=== PATIENT | female | born 1975 | race African-American/Black ===

== ENCOUNTER 2017-11-09 15:45 | Inpatient (IN) | payer OTHER ==
[2017-11-09 16:34] VITALS: BMI 31.3
--- NOTE | 2017-11-09 16:46 | HP ---
COWS - Scale Resting Pulse: 0= [place] 80 or Below Sweatin=Flushed/Facial Moisture Restless Observation: 1= Difficult to Sit Still Pupil Size: 1= Pupils >than Normal Bone or Joint Aches: 2= Severe Diffuse Aches Runny Nose/ Eye Tearin= Runny Nose/Eyes GI Upset > 30mins: 2= Nausea/Diarrhea Tremor Observation: 2= Slight Tremor Visible Yawning Observation: 1= 1-2x During Session Anxiety or Irritability: 2=Irritable/Anxious Goose Flesh Skin: 0=Smooth Skin COWS Score: 15 CIWA Score - CIWA Score Nausea/Vomitin-Mild Nausea/No Vomiting Muscle Tremors: 4-Moderate,w/Arms Extend Anxiety: 1-Mildly Anxious Agitation: 1-Slight > Activity Paroxysmal Sweats: 4-Forehead w/Sweat Beads Orientation: 0-Oriented Tacttile Disturbances: 0-None Auditory Disturbances: 0-None Visual Disturbances: 0-None Headache: 3-Moderate CIWA-Ar Total Score: 14 Admission ROS [facility] - [facility] Chief Complaint: Here for heroin and suboxone detox. Allergies/Adverse Reactions: Allergies Allergy/AdvReac Type Severity Reaction Status Date / Time ibuprofen [From Motrin] Allergy Verified 08/29/15 14:29 ketorolac tromethamine Allergy Verified 08/29/15 14:29 [From Toradol] naproxen [From Naprosyn] Allergy Verified 08/29/15 14:29 NSAIDS (Non-Steroidal Allergy Verified 08/29/15 14:29 Anti-Inflamma History of Present Illness: Hx heroin use since age 18. Started Suboxone treatment about 5 years ago and stopped program about 1-2 months ago. Since then has been using street suboxone and intermittent us of heroin. Last suboxone use was 8 pm on 11/08. Last heroin use was 11/09 at 8 am. Alcohol use 4- 16 oz beers daily. Started ETOH @ age 15. 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 No hx seizures. Hx anxiety and bipolar disorder. States on diamox, klonopin, and paxil. Exam Limitations: No Limitations - Ebola screening Have you traveled outside of the country in the last 21 days: No Have you had contact with anyone from an Ebola affected area: No Have you been sick,other than usual withdrawal symptoms: No Do you have a fever: No - Review of Systems Constitutional: Chills EENT: reports: Tearing (r/t withdrawal), Dental Problems, Odynophagia (States bad tooth ache and infection. States taking amoxicillin since 11/06 and using orajel. Also taking motrin. Has a precription waiting for Percocet.) Respiratory: reports: No Symptoms reported Cardiac: reports: No Symptoms Reported GI: reports: Constipated (Hx. constipation Moves bowels 2-3 x/ week.), Nausea, Indigestion (Hx acid reflux - taking OTC prevacid.) : reports: No Symptoms Reported Musculoskeletal: reports: Back Pain (r/t arthritis), Joint Pain (Pain in knees, hands, and fingers r/t arthritis.) Integumentary: reports: No Symptoms Reported Neuro: reports: Headache (r/t toothache and liquid in head..), Tingling, Other ( Hx tumor cerebri and on diamox. Denies numbness/weakness/seizures/visual changes ) Endocrine: reports: No Symptoms Reported Hematology: reports: No Symptoms Reported Psychiatric: reports: Orientated x3, Anxious (Hx. bipolar disorder/manic depressive. Denies suicide or violent ideation.) Patient History - Patient Medical History Hx Anemia: No Hx Asthma: No Hx Chronic Obstructive Pulmonary Disease (COPD): No Hx Cancer: No Hx Cardiac Disorders: No Hx Congestive Heart Failure: No Hx Hypertension: No Hx Hypercholesterolemia: No Hx Pacemaker: No HX Cerebrovascular Accident: No Hx Seizures: Yes (withdrawal from Klonopin 2013) Hx Dementia: No Hx Diabetes: No Hx Gastrointestinal Disorders: Yes (constipation) Hx Liver Disease: No Hx Genitourinary Disorders: No Hx Sexually Transmitted Disorders: No Hx Renal Disease (ESRD): No Hx Thyroid Disease: No Hx Human Immunodeficiency Virus (HIV): No Hx Hepatitis C: No Hx Depression: Yes (On meds) Hx Suicide Attempt: No Hx Bipolar Disorder: Yes (On meds) Hx Schizophrenia: No - Patient Surgical History Past Surgical History: Yes Hx Neurologic Surgery: No Hx Cataract Extraction: No Hx Cardiac Surgery: No Hx Lung Surgery: No Hx Breast Surgery: No Hx Breast Biopsy: No Hx Abdominal Surgery: No Hx Appendectomy: No Hx Cholecystectomy: Yes (2009) Hx Genitourinary Surgery: No Hx Section: Yes (1989 last 1999 last period 09/10) Hx Orthopedic Surgery: No Hx Hysterectomy: No Anesthesia Reaction: No - PPD History Previous Implant?: Yes Date: 08/23/15 Results: 0mm PPD to be Administered?: Yes - Reproductive History Patient is a Female of Child Bearing Age (11 -55 yrs old): Yes Last Menstrual Period: 10/13/15 LMP comment: regular Patient : No - Smoking Cessation Smoking history: Current every day smoker Have you smoked in the past 12 months: Yes Aproximately how many cigarettes per day: 5 Hx Chewing Tobacco Use: No Initiated information on smoking cessation: Yes 'Breaking Loose' booklet given: 11/09/17 - Substance & Tx. History Hx Alcohol Use: Yes Hx Substance Use: Yes Substance Use Type: Alcohol, Heroin, Opiates Hx Substance Use Treatment: Yes (Suboxone, detox ) - Substances Abused Heroin Route: intra-nasal Frequency: 3-6 times per week Amount used: 1 bag Age of first use: 24 Date of Last Use: 11/09/17 (8 am) Buprenorphine Route: sublingual Frequency: Daily Amount used: 8 mg Age of first use: 37 Date of Last Use: 11/08/17 (8 pm) Alcohol Route: Oral Frequency: Daily Amount used: 4 - 16 oz beers Age of first use: 15 Date of Last Use: 11/09/17 (2 pm) Family Disease History - Family Disease History Family Disease History: Diabetes: Mother, CA: Father (PANCREATIC/COLON,) , Other: Sister (etoh) Admission Physical Exam BHS - Vital Signs Vital Signs: Vital Signs - 24 hr 11/09/17 16:32 Temperature 98.1 F Pulse Rate 71 Respiratory 18 Rate Blood Pressure 158/100 - Physical General Appearance: Yes: Nourished, Moderate Distress, Tremorous, Irritable, Sweating, Anxious HEENTM: Yes: EOMI, Hearing grossly Normal, Normocephalic, LUNA, Other (Poor dentition. (+) tenderness (L) rear lower molar w/ mucous membrane tenderness.) Respiratory: Yes: Lungs Clear, Normal Breath Sounds Neck: Yes: No masses,lesions,Nodules Breast: Yes: Breast Exam Deferred Cardiology: Yes: Regular Rhythm, Regular Rate, S1, S2 Abdominal: Yes: Normal Bowel Sounds, Non Tender, Soft Genitourinary: Yes: Within Normal Limits Back: Yes: Normal Inspection Musculoskeletal: Yes: full range of Motion, Gait Steady Extremities: Yes: Normal Capillary Refill, Normal Range of Motion, Tremors Neurological: Yes: plastic roller II-XII NML intact, Fully Oriented, Alert, Motor Strength 5/5 Integumentary: Yes: Normal Color - Diagnostic (1) Alcohol dependence with uncomplicated withdrawal Current Visit: Yes Status: Acute (2) Nicotine dependence Current Visit: Yes Status: Chronic Qualifiers: Nicotine product type: cigarettes Substance use status: uncomplicated Qualified Code(s): F17.210 - Nicotine dependence, cigarettes, uncomplicated (3) Opiate withdrawal Current Visit: Yes Status: Acute (4) Pseudotumor cerebri Current Visit: Yes Status: Chronic (5) GERD (gastroesophageal reflux disease) Current Visit: Yes Status: Chronic (6) Abscess, dental Current Visit: Yes Status: Acute BHS Breath Alcohol Content Breath Alcohol Content: 0.008 Urine Pregancy Test - Result Urine Test Results: Negative- NO Line Present Urine Drug Screen - Results Drug Screen Negative: No Urine Drug Screen Results: ELIZ-Cocaine, OPI-Opiates, TCA-Tricyclic Antidepress
[2017-11-09] MEDS ORDERED: hydrOXYzine PAMOATE 50 MG CAPSULE (FP) PO PRN (17:43)
[2017-11-09] MEDS ORDERED: MAGNESIUM HYDROX 2400MG/30ML ORAL SUSPENSION 30 ML CUP PO PRN (17:43)
[2017-11-09] MEDS ORDERED: LOPERAMIDE HCL 2 MG CAPSULE PO PRN (17:43)
[2017-11-09] MEDS ORDERED: MAGNESIUM CITRATE 300 ML BOTTLE PO PRN (17:43)
[2017-11-09] MEDS ORDERED: MENTHOL/PHENOL 1 EACH UD MM PRN (17:43)
[2017-11-09] MEDS ORDERED: NICOTINE POLACRILEX 2 MG GUM BC PRN (17:43)
[2017-11-09] MEDS ORDERED: P-EPHED 60MG/TRIPROLIDI 2.5MG TABLET PO PRN (17:43)
[2017-11-09] MEDS ORDERED: chlordiazePOXIDE HCL 25 MG CAPSULE PO PRN (17:43)
[2017-11-09] MEDS ORDERED: MAG HYDROX/AL HYDROX/SIMETH 30 ML UNIT-DOSE CUP PO PRN (17:43)
[2017-11-09] MEDS ORDERED: guaiFENesin/D-METHORPHAN HB 10 ML UNIT-DOSE CUPS PO PRN (17:43)
[2017-11-09] MEDS ORDERED: METHADONE HCL 10 MG TABLET (FOR DETOX USE ONLY) PO ONE ×2 (19:00→23:00)
[2017-11-09] MEDS ORDERED: METHADONE HCL 10 MG TABLET (FOR DETOX USE ONLY) ONE (21:18)
[2017-11-09] MEDS: AMOXICILLIN 500 MG CAPSULE (FP) PO SCH (21:20)
[2017-11-09] MEDS: ACETAMINOPHEN 325 MG TABLET (FP) PO PRN (21:23)
[2017-11-09] MEDS ORDERED: MELATONIN 5 MG TABLETS PO PRN (22:00)
[2017-11-09] MEDS: THIAMINE HCL 100 MG TABLET (FP) PO SCH (22:31)
[2017-11-09] MEDS: chlordiazePOXIDE HCL 25 MG CAPSULE PO SCH (22:31)
[2017-11-09] MEDS: BENZOCAINE 20 % GEL 9 GM TUBE MM PRN (22:32)
[2017-11-09] MEDS: acetaZOLAMIDE 250 MG TABLET PO SCH (22:32)
[2017-11-10] MEDS: chlordiazePOXIDE HCL 25 MG CAPSULE PO SCH ×4 (06:12→22:30)
[2017-11-10] MEDS: AMOXICILLIN 500 MG CAPSULE (FP) PO SCH ×3 (06:12→22:29)
[2017-11-10] MEDS: ACETAMINOPHEN 325 MG TABLET (FP) PO PRN ×2 (06:13→14:10)
[2017-11-10] MEDS ORDERED: NICOTINE POLACRILEX 4 MG GUM BUC PRN (09:17)
--- NOTE | 2017-11-10 09:22 | PN ---
[facility] CIWA - CIWA Score Nausea/Vomitin-Mild Nausea/No Vomiting Muscle Tremors: 4-Moderate,w/Arms Extend Anxiety: 3 Agitation: 3 Paroxysmal Sweats: 1-Minimal Palms Moist Orientation: 0-Oriented Tacttile Disturbances: 0-None Auditory Disturbances: 0-None Visual Disturbances: 0-None Headache: 0-None Present CIWA-Ar Total Score: 12 [facility]HS COWS - Scale Resting Pulse: 0= [place] 80 or Below Sweatin= Chills/Flushing Restless Observation: 3= Extraneous Movement Pupil Size: 0= Normal to Room Light Bone or Joint Aches: 1= Mild Discomfort Runny Nose/ Eye Tearin= Nasal Congestion GI Upset > 30mins: 2= Nausea/Diarrhea Tremor Observation of Outstretched Hands: 2= Slight Tremor Visible Yawning Observation: 1= 1-2x During Session Anxiety or Irritability: 1=Feels Anxious/Irritable Goose Flesh Skin: 0=Smooth Skin COWS Score: 12 [facility] Progress Note (SOAP) Subjective: joint pain body ache tremor sweat tooth feel better able to chew regular food Objective: 11/10/17 09:22 Vital Signs Temperature 97.7 F 11/10/17 07:27 Pulse Rate 56 L 11/10/17 07:27 Respiratory Rate 18 11/10/17 07:27 Blood Pressure 131/74 11/10/17 07:27 O2 Sat by Pulse Oximetry (%) 11/10/17 09:23 lab not available Assessment: 11/10/17 09:23 withdrawal sx tooth abscess Plan: continue [facility] teaching on oral hygiene
[2017-11-10] MEDS: BENZOCAINE 20 % GEL 9 GM TUBE MM PRN (09:42)
[2017-11-10] MEDS ORDERED: METHADONE HCL 10 MG TABLET (FOR DETOX USE ONLY) PO SCH (10:00)
[2017-11-10 10:14] LABS: HEMATOCRIT 39.8 % (32.4-45.2); HEMOGLOBIN 13.1 GM/dL (10.7-15.3); MCH 28.7 pg (25.7-33.7); MCHC 32.9 g/dl (32.0-36.0); MEAN CELL VOLUME 87.4 fl (80-96); MEAN PLT VOLUME 10.2 fl (7.5-11.1); PLATELET COUNT 192 K/MM3 (134-434); RBC 4.55 M/mm3 (3.60-5.2); RDW 12.8 % (11.6-15.6); WHITE BLOOD COUNT 5.5 K/mm3 (4.0-10.0)
[2017-11-10 10:20] LABS: CHLORIDE 108 mmol/L (98-107); POTASSIUM 4.2 mmol/L (3.5-5.1); SODIUM 139 mmol/L (136-145)
[2017-11-10] MEDS: PRENATAL VITAMINS W/ FOLIC ACID TABLET (FP) PO SCH (10:33)
[2017-11-10] MEDS: PANTOPRAZOLE 20 MG TABLET (FP) PO SCH (10:33)
[2017-11-10] MEDS: NICOTINE 21 MG/24 HOURS TOPICAL PATCH TD SCH (10:34)
[2017-11-10] MEDS: NICOTINE 14 MG/24 HOURS TOPICAL PATCH TD SCH (10:34)
[2017-11-10] MEDS: acetaZOLAMIDE 250 MG TABLET PO SCH ×2 (10:35→22:30)
[2017-11-10 10:39] LABS: URINE APPEARANCE TURBID; URINE BILIRUBIN NEGATIVE (<2.0 mg/dL); URINE COLOR YELLOW; URINE GLUCOSE (UA) NEGATIVE (NEGATIVE); URINE KETONE NEGATIVE (NEGATIVE); URINE LEUK ESTERASE NEGATIVE (NEGATIVE); URINE NITRITE NEGATIVE (NEGATIVE); URINE PROTEIN NEGATIVE (NEGATIVE); URINE UROBILINOGEN NEGATIVE mg/dL (0.2-1.0)
[2017-11-10 11:21] LABS: ALK PHOS 70 U/L (45-117); ANION GAP 7 (8-16); BILIRUBIN,TOTAL 0.4 mg/dL (0.2-1.0); BLOOD UREA NITROGEN 16 mg/dL (7-18); CALCIUM 8.7 mg/dL (8.5-10.1); CO2 24 mmol/L (21-32); GLUCOSE,RANDOM 84 mg/dL (74-106); SGOT/AST 20 U/L (15-37); SGPT/ALT 41 U/L (12-78); TOT PROT 7.4 g/dl (6.4-8.2)
--- NOTE | 2017-11-10 16:23 | EKG ---
Test Reason : Blood Pressure : / mmHG Vent. Rate : 064 BPM Atrial Rate : 064 BPM P-R Int : 152 ms QRS Dur : 082 ms QT Int : 440 ms P-R-T Axes : 054 052 023 degrees QTc Int : 453 ms NORMAL SINUS RHYTHM NORMAL ECG NO PREVIOUS ECGS AVAILABLE Confirmed by MD Dwain, Ajay ([id number]) on 11/10/2017 4:22:52 PM Referred By: Confirmed By:Ajay Prakash MD
--- NOTE | 2017-11-10 17:10 | CONSULT ---
[facility] Psychiatric Consult - Data Date of interview: 11/10/17 Admission source: [facility] Identifying data: Readmission to [facility] for this 42 y/o AA female seeking detox treatment on for heroin and alcohol dependence.Patient is , a mother of five,domiciled,unemployed and supported on SSI benefits. Substance Abuse History: Smoking history: Current every day smoker. Have you smoked in the past 12 months: Yes. Aproximately how many cigarettes per day: 5. Hx Chewing Tobacco Use: No. Initiated information on smoking cessation: Yes. 'Breaking Loose' booklet given: 11/09/17. - Substance & Tx. History. Hx Alcohol Use: Yes. Hx Substance Use: Yes. Substance Use Type: Alcohol, Heroin, Opiates. Hx Substance Use Treatment: Yes (Suboxone, detox ). - Substances Abused. Heroin. Route: intra-nasal. Frequency: 3-6 times per week. Amount used: 1 bag. Age of first use: 24. Date of Last Use: 11/09/17 (8 am). Buprenorphine. Route: sublingual. Frequency: Daily. Amount used: 8 mg. Age of first use: 37. Date of Last Use: 11/08/17 (8 pm). Alcohol. Route: Oral. Frequency: Daily. Amount used: 4 - 16 oz beers. Age of first use: 15. Date of Last Use: 11/09/17 (2 pm) Medical History: GERD,antecedent of withdrawal-related seizures (klonopin), arthritis,pseudotumor cerebri and a history of surgeries (one section + cholecystectomy). Psychiatric History: Early onset of psychiatric disturbances (learning difficulties during chidhood).First psychiatric hospitalization occurred at [facility] (2007) for mood dysregulation.Diagnosed with Bipolar Disorder.Ms Jj endorses a history of multiple psychiatric hopsitalizations since 2007, which includes an admisssion to [facility].She currently gets her outpatient psychiatric services at the [facility] in [facility].Managed on a regimen of paxil 20 mg/day + seroquel 25 mg/ hs + clonazepam prn.Patient denies history of suicide attempts. Physical/Sexual Abuse/Trauma History: Patient declines to discuss this domain. Additional Comment: Urine Drug Screen Results: ELIZ-Cocaine, OPI-Opiates, TCA- Tricyclic Antidepressant.Noted. Mental Status Exam - Mental Status Exam Alert and Oriented to: Time, Place, Person Cognitive Function: Good Patient Appearance: Well Groomed Mood: Nervous, Anxious Affect: Mood Congruent Patient Behavior: Fatigued, Appropriate, Cooperative Speech Pattern: Clear Voice Loudness: Normal Thought Process: Goal Oriented Hallucinations: Denies Suicidal Ideation: Denies Homicidal Ideation: Denies Insight/Judgement: Poor Sleep: Poorly, Difficulty falling asleep Appetite: Good Muscle strength/Tone: Normal Gait/Station: Normal Psychiatric Findings - Problem List ([place] 1, 2,3) (1) Alcohol dependence with uncomplicated withdrawal Current Visit: Yes Status: Acute (2) Heroin dependence Current Visit: Yes Status: Acute (3) Cocaine dependence Current Visit: Yes Status: Acute (4) Nicotine dependence Current Visit: Yes Status: Chronic Qualifiers: Nicotine product type: cigarettes Substance use status: uncomplicated Qualified Code(s): F17.210 - Nicotine dependence, cigarettes, uncomplicated (5) Bipolar II disorder Current Visit: Yes Status: Chronic (6) Insomnia Current Visit: Yes Status: Acute - Initial Treatment Plan Initial Treatment Plan: Psychoeducation.Sleep hygiene.Detoxification.medications : seroquel 25 mg po hs (patient's specific request) + paxil 20 mg po daily.Side effects/benefits of both drugs are discussed with the patient.She agrees to this plan of care.Observation.
[2017-11-10] MEDS: THIAMINE HCL 100 MG TABLET (FP) PO SCH (22:30)
[2017-11-10] MEDS: QUEtiapine FUMARATE 25 MG TABLET (FP) PO SCH (22:30)
[2017-11-11] MEDS: ACETAMINOPHEN 325 MG TABLET (FP) PO PRN ×2 (06:00→11:00)
[2017-11-11] MEDS: chlordiazePOXIDE HCL 25 MG CAPSULE PO SCH ×3 (06:41→17:34)
[2017-11-11] MEDS: AMOXICILLIN 500 MG CAPSULE (FP) PO SCH ×3 (06:41→22:24)
[2017-11-11] MEDS: PANTOPRAZOLE 20 MG TABLET (FP) PO SCH (10:53)
[2017-11-11] MEDS: PRENATAL VITAMINS W/ FOLIC ACID TABLET (FP) PO SCH (10:53)
[2017-11-11] MEDS: METHADONE HCL 5 MG TABLET (FOR DETOX USE ONLY) PO SCH (10:53)
[2017-11-11] MEDS: PARoxetine HCL 20 MG TABLET (FP) PO SCH (10:53)
[2017-11-11] MEDS: NICOTINE 14 MG/24 HOURS TOPICAL PATCH TD SCH (10:54)
[2017-11-11] MEDS: acetaZOLAMIDE 250 MG TABLET PO SCH ×2 (10:54→22:24)
[2017-11-11] MEDS: NICOTINE 21 MG/24 HOURS TOPICAL PATCH TD SCH (10:55)
--- NOTE | 2017-11-11 11:51 | PN ---
[facility] CIWA - CIWA Score Nausea/Vomitin-No Nausea/No Vomiting Muscle Tremors: 3 Anxiety: 3 Agitation: 3 Paroxysmal Sweats: 1-Minimal Palms Moist Orientation: 0-Oriented Tacttile Disturbances: 1-Very Mild Itch/Numbness Auditory Disturbances: 0-None Visual Disturbances: 0-None Headache: 0-None Present CIWA-Ar Total Score: 11 S COWS - Scale Resting Pulse: 0= [place] 80 or Below Sweatin= Chills/Flushing Restless Observation: 1= Difficult to Sit Still Pupil Size: 0= Normal to Room Light Bone or Joint Aches: 2= Severe Diffuse Aches Runny Nose/ Eye Tearin= Nasal Congestion GI Upset > 30mins: 2= Nausea/Diarrhea Tremor Observation of Outstretched Hands: 2= Slight Tremor Visible Yawning Observation: 1= 1-2x During Session Anxiety or Irritability: 1=Feels Anxious/Irritable Goose Flesh Skin: 0=Smooth Skin COWS Score: 11 [facility] Progress Note (SOAP) Subjective: sweat joint pain body ache tremor trouble sleep at night Objective: 11/11/17 11:50 Vital Signs Temperature 97.2 F L 11/11/17 09:21 Pulse Rate 62 11/11/17 09:21 Respiratory Rate 18 11/11/17 09:21 Blood Pressure 102/53 11/11/17 09:21 O2 Sat by Pulse Oximetry (%) Laboratory Last Values WBC 5.5 K/mm3 (4.0-10.0) D 11/10/17 07:30 RBC 4.55 M/mm3 (3.60-5.2) 11/10/17 07:30 Hgb 13.1 GM/dL (10.7-15.3) 11/10/17 07:30 Hct 39.8 % (32.4-45.2) 11/10/17 07:30 MCV 87.4 fl (80-96) 11/10/17 07:30 MCH 28.7 pg (25.7-33.7) 11/10/17 07:30 MCHC 32.9 g/dl (32.0-36.0) 11/10/17 07:30 RDW 12.8 % (11.6-15.6) 11/10/17 07:30 Plt Count 192 K/MM3 (134-434) 11/10/17 07:30 MPV 10.2 fl (7.5-11.1) 11/10/17 07:30 Sodium 139 mmol/L (136-145) 11/10/17 07:30 Potassium 4.2 mmol/L (3.5-5.1) 11/10/17 07:30 Chloride 108 mmol/L (98-107) H 11/10/17 07:30 Carbon Dioxide 24 mmol/L (21-32) 11/10/17 07:30 Anion Gap 7 (8-16) L 11/10/17 07:30 BUN 16 mg/dL (7-18) 11/10/17 07:30 Creatinine 1.0 mg/dL (0.55-1.02) 11/10/17 07:30 Creat Clearance w eGFR > 60 (>60) 11/10/17 07:30 Random Glucose 84 mg/dL (74-106) 11/10/17 07:30 Calcium 8.7 mg/dL (8.5-10.1) 11/10/17 07:30 Total Bilirubin 0.4 mg/dL (0.2-1.0) 11/10/17 07:30 AST 20 U/L (15-37) 11/10/17 07:30 ALT 41 U/L (12-78) 11/10/17 07:30 Alkaline Phosphatase 70 U/L (45-117) 11/10/17 07:30 Total Protein 7.4 g/dl (6.4-8.2) 11/10/17 07:30 Albumin 4.0 g/dl (3.4-5.0) 11/10/17 07:30 Urine Color Yellow 11/09/17 08:00 Urine Appearance Turbid 11/09/17 08:00 Urine pH 5.0 (5.0-8.0) 11/09/17 08:00 Ur Specific [place] 1.030 (1.001-1.035) 11/09/17 08:00 Urine Protein Negative (NEGATIVE) 11/09/17 08:00 Urine Glucose (UA) Negative (NEGATIVE) 11/09/17 08:00 Urine Ketones Negative (NEGATIVE) 11/09/17 08:00 Urine Blood Negative (NEGATIVE) 11/09/17 08:00 Urine Nitrite Negative (NEGATIVE) 11/09/17 08:00 Urine Bilirubin Negative (<2.0 mg/dL) 11/09/17 08:00 Urine Urobilinogen Negative mg/dL (0.2-1.0) 11/09/17 08:00 Ur Leukocyte Esterase Negative (NEGATIVE) 11/09/17 08:00 RPR Titer Nonreactive (NONREACTIVE) 11/10/17 07:30 HIV 1&2 Antibody Screen Negative 11/10/17 07:30 HIV P24 Antigen Negative 11/10/17 07:30 lab noted Assessment: 11/11/17 11:51 withdrawal sx Plan: continue detox
[2017-11-11] MEDS: QUEtiapine FUMARATE 25 MG TABLET (FP) PO SCH (22:24)
[2017-11-11] MEDS: chlordiazePOXIDE 5 MG CAPSULE PO SCH (22:24)
[2017-11-11] MEDS: THIAMINE HCL 100 MG TABLET (FP) PO SCH (22:24)
[2017-11-12] MEDS: AMOXICILLIN 500 MG CAPSULE (FP) PO SCH ×3 (05:50→22:16)
[2017-11-12] MEDS: chlordiazePOXIDE 5 MG CAPSULE PO SCH ×3 (05:51→17:39)
--- NOTE | 2017-11-12 10:00 | PN ---
[facility] Progress Note (SOAP) Subjective: joint pain body ache sweat tremor trouble sleep at night Objective: 11/12/17 09:59 Vital Signs Temperature 97.7 F 11/12/17 09:24 Pulse Rate 78 11/12/17 09:24 Respiratory Rate 18 11/12/17 09:24 Blood Pressure 103/65 11/12/17 09:24 O2 Sat by Pulse Oximetry (%) Laboratory Last Values WBC 5.5 K/mm3 (4.0-10.0) D 11/10/17 07:30 RBC 4.55 M/mm3 (3.60-5.2) 11/10/17 07:30 Hgb 13.1 GM/dL (10.7-15.3) 11/10/17 07:30 Hct 39.8 % (32.4-45.2) 11/10/17 07:30 MCV 87.4 fl (80-96) 11/10/17 07:30 MCH 28.7 pg (25.7-33.7) 11/10/17 07:30 MCHC 32.9 g/dl (32.0-36.0) 11/10/17 07:30 RDW 12.8 % (11.6-15.6) 11/10/17 07:30 Plt Count 192 K/MM3 (134-434) 11/10/17 07:30 MPV 10.2 fl (7.5-11.1) 11/10/17 07:30 Sodium 139 mmol/L (136-145) 11/10/17 07:30 Potassium 4.2 mmol/L (3.5-5.1) 11/10/17 07:30 Chloride 108 mmol/L (98-107) H 11/10/17 07:30 Carbon Dioxide 24 mmol/L (21-32) 11/10/17 07:30 Anion Gap 7 (8-16) L 11/10/17 07:30 BUN 16 mg/dL (7-18) 11/10/17 07:30 Creatinine 1.0 mg/dL (0.55-1.02) 11/10/17 07:30 Creat Clearance w eGFR > 60 (>60) 11/10/17 07:30 Random Glucose 84 mg/dL (74-106) 11/10/17 07:30 Calcium 8.7 mg/dL (8.5-10.1) 11/10/17 07:30 Total Bilirubin 0.4 mg/dL (0.2-1.0) 11/10/17 07:30 AST 20 U/L (15-37) 11/10/17 07:30 ALT 41 U/L (12-78) 11/10/17 07:30 Alkaline Phosphatase 70 U/L (45-117) 11/10/17 07:30 Total Protein 7.4 g/dl (6.4-8.2) 11/10/17 07:30 Albumin 4.0 g/dl (3.4-5.0) 11/10/17 07:30 Urine Color Yellow 11/09/17 08:00 Urine Appearance Turbid 11/09/17 08:00 Urine pH 5.0 (5.0-8.0) 11/09/17 08:00 Ur Specific [place] 1.030 (1.001-1.035) 11/09/17 08:00 Urine Protein Negative (NEGATIVE) 11/09/17 08:00 Urine Glucose (UA) Negative (NEGATIVE) 11/09/17 08:00 Urine Ketones Negative (NEGATIVE) 11/09/17 08:00 Urine Blood Negative (NEGATIVE) 11/09/17 08:00 Urine Nitrite Negative (NEGATIVE) 11/09/17 08:00 Urine Bilirubin Negative (<2.0 mg/dL) 11/09/17 08:00 Urine Urobilinogen Negative mg/dL (0.2-1.0) 11/09/17 08:00 Ur Leukocyte Esterase Negative (NEGATIVE) 11/09/17 08:00 RPR Titer Nonreactive (NONREACTIVE) 11/10/17 07:30 HIV 1&2 Antibody Screen Negative 11/10/17 07:30 HIV P24 Antigen Negative 11/10/17 07:30 lab noted Assessment: 11/12/17 10:00 withdrawal sx Plan: continue detox
[2017-11-12] MEDS: acetaZOLAMIDE 250 MG TABLET PO SCH ×2 (10:21→22:16)
[2017-11-12] MEDS: METHADONE HCL 5 MG TABLET (FOR DETOX USE ONLY) PO SCH (10:21)
[2017-11-12] MEDS: PRENATAL VITAMINS W/ FOLIC ACID TABLET (FP) PO SCH (10:21)
[2017-11-12] MEDS: PANTOPRAZOLE 20 MG TABLET (FP) PO SCH (10:21)
[2017-11-12] MEDS: PARoxetine HCL 20 MG TABLET (FP) PO SCH (10:21)
[2017-11-12] MEDS: NICOTINE 21 MG/24 HOURS TOPICAL PATCH TD SCH (10:24)
[2017-11-12] MEDS: NICOTINE 14 MG/24 HOURS TOPICAL PATCH TD SCH (11:21)
[2017-11-12] MEDS: BENZOCAINE 20 % GEL 9 GM TUBE MM PRN (17:40)
[2017-11-12] MEDS: ACETAMINOPHEN 325 MG TABLET (FP) PO PRN (19:37)
[2017-11-12] MEDS: chlordiazePOXIDE HCL 10 MG CAPSULE PO SCH (22:16)
[2017-11-12] MEDS: QUEtiapine FUMARATE 25 MG TABLET (FP) PO SCH (22:16)
[2017-11-12] MEDS: THIAMINE HCL 100 MG TABLET (FP) PO SCH (22:17)
[2017-11-13] MEDS: AMOXICILLIN 500 MG CAPSULE (FP) PO SCH (06:14)
[2017-11-13] MEDS: chlordiazePOXIDE HCL 10 MG CAPSULE PO SCH (06:14)
--- NOTE | 2017-11-13 09:24 | DS ---
[facility] Detox Discharge Summary Admission Date: 11/09/17 Discharge Date: 11/13/17 - History Present History: Alcohol Dependence, Opioid Dependence Additional Comments: 42 years old female admitted on 11/09/17 for alcohol and opiate withdrawal sx [facility] journey case discussed with the counselor onsite female bed available today for the patient who requests return home for clothing today before 1100am to the rehab facility at [facility] patient agrees to [facility] before 1100 am rehab with clothing patient is alert oriented x 3 no acute distress denies pain denies discomfort - Physical Exam Results Vital Signs: Vital Signs Temperature 98.1 F 11/13/17 06:00 Pulse Rate 78 11/13/17 06:00 Respiratory Rate 18 11/13/17 06:00 Blood Pressure 104/56 11/13/17 06:00 O2 Sat by Pulse Oximetry (%) Pertinent Admission Physical Exam Findings: withdrawal sx Vital Signs Temperature 98.1 F 11/13/17 06:00 Pulse Rate 78 11/13/17 06:00 Respiratory Rate 18 11/13/17 06:00 Blood Pressure 104/56 11/13/17 06:00 O2 Sat by Pulse Oximetry (%) Laboratory Last Values WBC 5.5 K/mm3 (4.0-10.0) D 11/10/17 07:30 RBC 4.55 M/mm3 (3.60-5.2) 11/10/17 07:30 Hgb 13.1 GM/dL (10.7-15.3) 11/10/17 07:30 Hct 39.8 % (32.4-45.2) 11/10/17 07:30 MCV 87.4 fl (80-96) 11/10/17 07:30 MCH 28.7 pg (25.7-33.7) 11/10/17 07:30 MCHC 32.9 g/dl (32.0-36.0) 11/10/17 07:30 RDW 12.8 % (11.6-15.6) 11/10/17 07:30 Plt Count 192 K/MM3 (134-434) 11/10/17 07:30 MPV 10.2 fl (7.5-11.1) 11/10/17 07:30 Sodium 139 mmol/L (136-145) 11/10/17 07:30 Potassium 4.2 mmol/L (3.5-5.1) 11/10/17 07:30 Chloride 108 mmol/L (98-107) H 11/10/17 07:30 Carbon Dioxide 24 mmol/L (21-32) 11/10/17 07:30 Anion Gap 7 (8-16) L 11/10/17 07:30 BUN 16 mg/dL (7-18) 11/10/17 07:30 Creatinine 1.0 mg/dL (0.55-1.02) 11/10/17 07:30 Creat Clearance w eGFR > 60 (>60) 11/10/17 07:30 Random Glucose 84 mg/dL (74-106) 11/10/17 07:30 Calcium 8.7 mg/dL (8.5-10.1) 11/10/17 07:30 Total Bilirubin 0.4 mg/dL (0.2-1.0) 11/10/17 07:30 AST 20 U/L (15-37) 11/10/17 07:30 ALT 41 U/L (12-78) 11/10/17 07:30 Alkaline Phosphatase 70 U/L (45-117) 11/10/17 07:30 Total Protein 7.4 g/dl (6.4-8.2) 11/10/17 07:30 Albumin 4.0 g/dl (3.4-5.0) 11/10/17 07:30 Urine Color Yellow 11/09/17 08:00 Urine Appearance Turbid 11/09/17 08:00 Urine pH 5.0 (5.0-8.0) 11/09/17 08:00 Ur Specific [place] 1.030 (1.001-1.035) 11/09/17 08:00 Urine Protein Negative (NEGATIVE) 11/09/17 08:00 Urine Glucose (UA) Negative (NEGATIVE) 11/09/17 08:00 Urine Ketones Negative (NEGATIVE) 11/09/17 08:00 Urine Blood Negative (NEGATIVE) 11/09/17 08:00 Urine Nitrite Negative (NEGATIVE) 11/09/17 08:00 Urine Bilirubin Negative (<2.0 mg/dL) 11/09/17 08:00 Urine Urobilinogen Negative mg/dL (0.2-1.0) 11/09/17 08:00 Ur Leukocyte Esterase Negative (NEGATIVE) 11/09/17 08:00 RPR Titer Nonreactive (NONREACTIVE) 11/10/17 07:30 HIV 1&2 Antibody Screen Negative 11/10/17 07:30 HIV P24 Antigen Negative 11/10/17 07:30 lab noted - Treatment Hospital Course: Detox Protocol Followed, Detoxed Safely, Responded well, Discharged Condition Good, Rehab Referral Accepted Patient has Accepted a Rehab Referral to: [facility] - Medication Discharge Medications: Ambulatory Orders Lansoprazole [Prevacid -] 30 mg PO DAILY 04/04/14 acetaZOLAMIDE [Diamox -] 500 mg PO BID 04/04/14 Paroxetine HCl [Paxil -] 20 mg PO HS 08/21/15 Sulfamethoxazole/Trimethoprim [Bactrim DS -] 1 each PO BID #10 tablet 08/26/15 Buprenorphine/Naloxone [Suboxone 8Mg/2Mg Sl Film -] 2 each SL DAILY 08/29/15 Paroxetine HCl [Paxil] 20 mg PO DAILY #30 tablet 11/11/17 Quetiapine Fumarate [Seroquel -] 25 mg PO HS #30 tablet 11/11/17 - Diagnosis (1) Opioid dependence with withdrawal Current Visit: Yes Status: Acute (2) Alcohol dependence with uncomplicated withdrawal Current Visit: Yes Status: Acute (3) Bipolar II disorder Current Visit: Yes Status: Suspected (4) Nicotine dependence Current Visit: Yes Status: Acute Qualifiers: Nicotine product type: cigarettes Substance use status: in withdrawal Qualified Code(s): F17.213 - Nicotine dependence, cigarettes, with withdrawal - AMA Did Patient Leave Against Medical Advice: No
[2017-11-13 09:47] VITALS: BP 150/78; PULSE 74; TEMP 97.7
[2017-11-13] MEDS ORDERED: METHADONE HCL 10 MG TABLET (FOR DETOX USE ONLY) PO SCH (10:00)
[2017-11-14] MEDS ORDERED: METHADONE HCL 5 MG TABLET (FOR DETOX USE ONLY) PO SCH (06:00)
[2017-11-18] MEDS ORDERED: acetaZOLAMIDE 250 MG TABLET PO SCH (22:00)
== END 2017-11-13 09:40 | disposition home or self-care (01) | DRG 773 ==
LOC: YASAS 15:45 → Y6N 18:44
PROVIDERS: ADMIT Surgery; ATTEND Surgery
PROC: HZ2ZZZZ Detoxification Services for Substance Abuse Treatment (ICD-10-PCS; principal; 2017-11-09)
DX: F11.23 Opioid dependence with withdrawal (principal); F10.230 Alcohol dependence with withdrawal, uncomplicated; F14.20 Cocaine dependence, uncomplicated; F17.213 Nicotine dependence, cigarettes, with withdrawal; F31.81 Bipolar II disorder; G47.00 Insomnia, unspecified; G93.2 Benign intracranial hypertension; K21.9 Gastro-esophageal reflux disease without esophagitis; K04.7 Periapical abscess without sinus
CPT/HCPCS: 36415; 80053; 81003; 85027; 86593; 87389; 93005; 93010

== ENCOUNTER 2017-11-13 11:56 | Inpatient (IN) | payer OTHER ==
[2017-11-13 13:21] VITALS: BMI 31.3
--- NOTE | 2017-11-13 13:56 | HP ---
[facility] Rehab Assess/Revision - Admission History Admitted to Rehab from: [facility] Date of Admission to Rehab: 11/13/17 - Vital signs Vital Signs: Vital Signs Period Temp Pulse Resp BP Sys/Medeiros Pulse Ox Last 24 Hr 97.3 F 87 20 131/86 - Findings Detox History & Physical reviewed: Yes Concur with findings: Yes Comments/Additional Findings: for rehab as protocol Inpatient Rehab Admission - Initial Determination Are CD services needed?: Yes Free of communicable disease: Yes Not in need of hospitalization: Yes - Rehab Admission Criteria Previous failed treatment: Yes Poor recovery environment: Yes Comorbidities: Yes Lacks judgement: No Patient is meeting Inpatient Rehab admission criteria:: Yes
[2017-11-13] MEDS ORDERED: MAGNESIUM HYDROX 2400MG/30ML ORAL SUSPENSION 30 ML CUP PO PRN (13:59)
[2017-11-13] MEDS ORDERED: LOPERAMIDE HCL 2 MG CAPSULE PO PRN (13:59)
[2017-11-13] MEDS ORDERED: guaiFENesin/D-METHORPHAN HB 10 ML UNIT-DOSE CUPS PO PRN (13:59)
[2017-11-13] MEDS ORDERED: MAGNESIUM CITRATE 300 ML BOTTLE PO PRN (13:59)
[2017-11-13] MEDS ORDERED: P-EPHED 60MG/TRIPROLIDI 2.5MG TABLET PO PRN (13:59)
[2017-11-13] MEDS ORDERED: MAG HYDROX/AL HYDROX/SIMETH 30 ML UNIT-DOSE CUP PO PRN (13:59)
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
[2017-11-13] MEDS: CYCLOBENZAPRINE HCL 10 MG TABLET (FP) PO PRN (16:24)
[2017-11-13] MEDS: ACETAMINOPHEN 325 MG TABLET (FP) PO PRN ×2 (16:24→22:19)
[2017-11-13] MEDS: NICOTINE 21 MG/24 HOURS TOPICAL PATCH TD SCH (16:25)
[2017-11-13] MEDS: cloNIDine HCL 0.1 MG TABLET PO SCH (22:19)
[2017-11-13] MEDS: THIAMINE HCL 100 MG TABLET (FP) PO SCH (22:19)
[2017-11-13] MEDS: QUEtiapine FUMARATE 25 MG TABLET (FP) PO SCH (22:19)
[2017-11-13] MEDS: MELATONIN 5 MG TABLETS PO PRN (22:21)
[2017-11-14] MEDS ORDERED: LIDOCAINE VISCOUS 2% ORAL/TOP 20 ML UNIT-DOSE CUP MM PRN ×2 (01:58→15:12)
[2017-11-14] MEDS: ACETAMINOPHEN 325 MG TABLET (FP) PO PRN ×3 (06:44→21:54)
[2017-11-14] MEDS: NICOTINE 21 MG/24 HOURS TOPICAL PATCH TD SCH (09:46)
[2017-11-14] MEDS: PARoxetine HCL 20 MG TABLET (FP) PO SCH (09:46)
[2017-11-14] MEDS: PRENATAL VITAMINS W/ FOLIC ACID TABLET (FP) PO SCH (09:46)
[2017-11-14] MEDS: cloNIDine HCL 0.1 MG TABLET PO SCH ×2 (09:46→21:48)
[2017-11-14] MEDS: CYCLOBENZAPRINE HCL 10 MG TABLET (FP) PO PRN (14:57)
[2017-11-14] MEDS: QUEtiapine FUMARATE 25 MG TABLET (FP) PO SCH (21:48)
[2017-11-14] MEDS: THIAMINE HCL 100 MG TABLET (FP) PO SCH (21:48)
[2017-11-14] MEDS: MELATONIN 5 MG TABLETS PO PRN (21:54)
[2017-11-15] MEDS: AMOXICILLIN 500 MG CAPSULE (FP) PO SCH ×4 (00:38→21:27)
[2017-11-15] MEDS: ACETAMINOPHEN 325 MG TABLET (FP) PO PRN ×2 (06:39→21:30)
[2017-11-15] MEDS: cloNIDine HCL 0.1 MG TABLET PO SCH ×2 (09:55→21:28)
[2017-11-15] MEDS: PARoxetine HCL 20 MG TABLET (FP) PO SCH (09:55)
[2017-11-15] MEDS: NICOTINE 21 MG/24 HOURS TOPICAL PATCH TD SCH (09:56)
[2017-11-15] MEDS: PRENATAL VITAMINS W/ FOLIC ACID TABLET (FP) PO SCH (09:56)
--- NOTE | 2017-11-15 13:28 | PN ---
[facility] Progress Note Note: pt is still having toothache; anbesol ordered prn.
[2017-11-15] MEDS: THIAMINE HCL 100 MG TABLET (FP) PO SCH (21:28)
[2017-11-15] MEDS: QUEtiapine FUMARATE 25 MG TABLET (FP) PO SCH (21:28)
[2017-11-15] MEDS: BENZOCAINE 20 % GEL 9 GM TUBE MM PRN (21:28)
[2017-11-15] MEDS: MELATONIN 5 MG TABLETS PO PRN (21:30)
[2017-11-16] MEDS: AMOXICILLIN 500 MG CAPSULE (FP) PO SCH ×3 (06:31→21:33)
[2017-11-16] MEDS: ACETAMINOPHEN 325 MG TABLET (FP) PO PRN ×2 (06:31→21:36)
[2017-11-16] MEDS: MENTHOL/PHENOL 1 EACH UD MM PRN ×2 (06:32→19:31)
[2017-11-16] MEDS: cloNIDine HCL 0.1 MG TABLET PO SCH ×2 (10:04→21:34)
[2017-11-16] MEDS: NICOTINE 21 MG/24 HOURS TOPICAL PATCH TD SCH (10:05)
[2017-11-16] MEDS: PARoxetine HCL 20 MG TABLET (FP) PO SCH (10:05)
[2017-11-16] MEDS: PRENATAL VITAMINS W/ FOLIC ACID TABLET (FP) PO SCH (10:05)
[2017-11-16] MEDS ORDERED: diphenhydrAMINE HCL 50 MG CAPSULE PO ONE (12:27)
--- NOTE | 2017-11-16 12:31 | PN ---
[facility] Progress Note Note: patient of tingling sensation on her lips and mouth after eating BBQ sauce. Vital Signs Temperature 98.2 F 11/16/17 07:07 Pulse Rate 77 11/16/17 09:24 Respiratory Rate 18 11/16/17 07:07 Blood Pressure 116/69 11/16/17 09:24 O2 Sat by Pulse Oximetry (%) Benadryl 50 mg once dose continue to monitor
[2017-11-16] MEDS: diphenhydrAMINE HCL 25 MG CAPSULE (FP) PO PRN (17:37)
[2017-11-16] MEDS: THIAMINE HCL 100 MG TABLET (FP) PO SCH (21:33)
[2017-11-16] MEDS: QUEtiapine FUMARATE 25 MG TABLET (FP) PO SCH (21:33)
[2017-11-16] MEDS: MELATONIN 5 MG TABLETS PO PRN (21:34)
[2017-11-17] MEDS: AMOXICILLIN 500 MG CAPSULE (FP) PO SCH ×3 (06:07→21:30)
[2017-11-17] MEDS: ACETAMINOPHEN 325 MG TABLET (FP) PO PRN ×3 (06:08→21:31)
[2017-11-17] MEDS: MENTHOL/PHENOL 1 EACH UD MM PRN ×2 (06:09→10:21)
[2017-11-17] MEDS: diphenhydrAMINE HCL 25 MG CAPSULE (FP) PO PRN ×2 (08:45→18:11)
[2017-11-17] MEDS: PRENATAL VITAMINS W/ FOLIC ACID TABLET (FP) PO SCH (10:00)
[2017-11-17] MEDS: PARoxetine HCL 20 MG TABLET (FP) PO SCH (10:00)
[2017-11-17] MEDS: NICOTINE 21 MG/24 HOURS TOPICAL PATCH TD SCH (10:00)
--- NOTE | 2017-11-17 14:04 | PN ---
[facility] Progress Note Note: Vital Signs Temperature 98.6 F 11/17/17 06:43 Pulse Rate 71 11/17/17 09:14 Respiratory Rate 18 11/17/17 06:43 Blood Pressure 121/91 11/17/17 09:14 O2 Sat by Pulse Oximetry (%) Patient c/o of sore throat, pain with swallowing and white substance on tongue. Patient also report tongue swells when taking BBQ sauce and ketchup. A/P AOX3 in no apparent distress NO JVD Skin intact, no lesions or erythema present +white plaques on tongue, + redness tonsils, no tonsil swelling or exudates - sore throat Plan: throat culture peridex wash PRN Bendral PRN increase fluids continue to monitor
[2017-11-17] MEDS: CHLORHEXIDINE GLUCONATE 0.12% 15ML CUP MM SCH ×2 (15:00→21:29)
[2017-11-17] MEDS: BENZOCAINE 20 % GEL 9 GM TUBE MM PRN (15:24)
[2017-11-17] MEDS ORDERED: PT OWN MED DRAWER 7, Y5N ONE ×2 (15:25→19:40)
[2017-11-17] MEDS: QUEtiapine FUMARATE 25 MG TABLET (FP) PO SCH (21:30)
[2017-11-17] MEDS: THIAMINE HCL 100 MG TABLET (FP) PO SCH (21:30)
[2017-11-17] MEDS: MELATONIN 5 MG TABLETS PO PRN (21:30)
[2017-11-17] MEDS ORDERED: cloNIDine HCL 0.1 MG TABLET PO ONE (22:00)
[2017-11-18] MEDS: diphenhydrAMINE HCL 25 MG CAPSULE (FP) PO PRN ×2 (01:48→10:06)
[2017-11-18] MEDS: AMOXICILLIN 500 MG CAPSULE (FP) PO SCH ×3 (06:23→21:27)
[2017-11-18] MEDS: ACETAMINOPHEN 325 MG TABLET (FP) PO PRN ×2 (06:23→21:30)
[2017-11-18] MEDS ORDERED: hydrOXYzine PAMOATE 50 MG CAPSULE (FP) PO PRN (06:42)
[2017-11-18] MEDS: NICOTINE 21 MG/24 HOURS TOPICAL PATCH TD SCH (10:05)
[2017-11-18] MEDS: PRENATAL VITAMINS W/ FOLIC ACID TABLET (FP) PO SCH (10:05)
[2017-11-18] MEDS: CHLORHEXIDINE GLUCONATE 0.12% 15ML CUP MM SCH ×2 (10:05→21:28)
[2017-11-18] MEDS: PARoxetine HCL 20 MG TABLET (FP) PO SCH (10:05)
[2017-11-18] MEDS: MENTHOL/PHENOL 1 EACH UD MM PRN ×2 (10:08→21:31)
--- NOTE | 2017-11-18 10:27 | PN ---
Psychiatric Progress Note Vital Signs: Vital Signs Period Temp Pulse Resp BP Sys/Medeiros Pulse Ox Last 24 Hr 98.5 F 59 18-18 143/89 Date of Session: 11/18/17 Chief Complaint:: Flo not sleeping at all,still having withdrawal.. HPI: Patient addressed Opioid,Alcohol,[place] and Benzo dependence comorbid with Bipolar II disorder. ROS: GERD. Current Medications: Active Medications Generic Name Dose Route Start Last Admin Trade Name Freq PRN Reason Stop Dose Admin Acetaminophen 650 mg 11/13/17 13:59 11/18/17 06:23 Tylenol - PO 650 mg Q4H PRN Administration FEVER Al Hydroxide/Mg Hydroxide 30 ml 11/13/17 13:59 Mylanta Oral Suspension - PO Q6H PRN DYSPEPSIA Amoxicillin 500 mg 11/14/17 22:00 11/18/17 06:23 Amoxicillin - PO 500 mg TID GULSHAN Administration Benzocaine 1 applic 11/15/17 13:26 11/17/17 15:24 Anbesol - MM 1 applic Q2H PRN Administration FOR TOOTHACHE Chlorhexidine Gluconate 15 ml 11/17/17 14:00 11/18/17 10:05 Peridex - MM 15 ml BID GULSHAN Administration Diphenhydramine HCl 25 mg 11/16/17 12:28 11/18/17 10:06 Benadryl - PO 25 mg Q6H PRN Administration FOR ITCHING Eucalyptus/Menthol/Phenol/Sorbitol 1 each 11/13/17 13:59 11/18/17 10:08 Cepastat Lozenge - MM 1 each Q4H PRN Administration SORE THROAT Guaifenesin 10 ml 11/13/17 13:59 Robitussin Dm - PO Q6H PRN COUGH Hydroxyzine Pamoate 50 mg 11/18/17 06:42 Vistaril - PO Q6H PRN FOR ITCHING Lidocaine HCl 15 ml 11/14/17 15:12 Xylocaine 2% Viscous Oral - MM Q6H PRN ORAL PAIN/MOUTH SORES Loperamide HCl 4 mg 11/13/17 13:59 Imodium - PO Q6H PRN DIARRHEA Magnesium Citrate 300 ml 11/13/17 13:59 Citroma - PO Q48H PRN CONSTIPATION Magnesium Hydroxide 30 ml 11/13/17 13:59 Milk Of Magnesia - PO DAILY PRN CONSTIPATION Melatonin 5 mg 11/13/17 22:00 11/17/17 21:30 Melatonin PO 5 mg HS PRN Administration INSOMNIA Nicotine 21 mg 11/13/17 14:15 11/18/17 10:05 Nicoderm Patch - TD 21 mg DAILY GULSHAN Administration Paroxetine HCl 20 mg 11/14/17 10:00 11/18/17 10:05 Paxil - PO 20 mg DAILY GULSHAN Administration Multivit/Folic Acid/Iron 1 tab 11/14/17 10:00 11/18/17 10:05 Vitamins (Sjr) - PO 1 tab DAILY GULSHAN Administration Pseudoephedrine/Triprolidine 1 combo 11/13/17 13:59 Actifed - PO TID PRN NASAL CONGESTION Quetiapine Fumarate 50 mg 11/18/17 22:00 Seroquel - PO HS GULSHAN Thiamine HCl 100 mg 11/13/17 22:00 11/17/17 21:30 Vitamin B1 - PO 100 mg HS GULSHAN Administration Current Side Effect: No Lab tests ordered: No Lab tests reviewed: Yes Provider note:: Chart was revuewed ,patient was seen to address her sleeping difficulties.Properties of Seroquel has been discussed including side effects, benefits and dose adjustment.Seroquel 50 mg po hs will be adjusted to 100 mg po hs.Supportive therapy has been provided. Total face to face time:: 25 Mental Status Exam - Mental Status Exam Alert and Oriented to: Time, Place, Person Cognitive Function: Grossly Intact Patient Appearance: Well Groomed Mood: Anxious Affect: Mood Congruent, Labile Patient Behavior: Appropriate, Cooperative Speech Pattern: Clear Voice Loudness: Normal Thought Process: Goal Oriented Thought Disorder: Not Present Hallucinations: Denies Suicidal Ideation: Denies Homicidal Ideation: Denies Insight/Judgement: Good Sleep: Well Appetite: Good Muscle strength/Tone: Normal Gait/Station: Normal Psychiatric Treatment Plan - Problem List (1) Alcohol dependence Current Visit: Yes (2) Opioid dependence Current Visit: Yes (3) Cocaine dependence Current Visit: Yes (4) Nicotine dependence Current Visit: Yes Qualifiers: (5) Benzodiazepine dependence Current Visit: Yes (6) Bipolar II disorder Current Visit: Yes (7) GERD (gastroesophageal reflux disease) Current Visit: Yes (8) Pseudotumor cerebri Current Visit: Yes
--- NOTE | 2017-11-18 14:10 | PN ---
[facility] Progress Note Note: PATIENT SEEN FOR C/O HEADACHE, SWEATING, BODY ACHES, VOMTING X 1 AND TIREDNESS. DENIES CP,SOB AND DIZZINESS. Vital Signs Temperature 98.5 F 11/18/17 07:08 Pulse Rate 70 11/18/17 10:00 Respiratory Rate 18 11/18/17 07:08 Blood Pressure 130/89 11/18/17 10:00 O2 Sat by Pulse Oximetry (%) OBJ: GENERAL: ALERT AND ORIENTED X 3. IN NO ACUTE DISTRESS. STATES I FEEL TIRED. SKIN: MOIST AND WARM. GI:SOFT, NO DISTENTION EXT: FULL ROM A/P: WITHDRAWAL SYNDROME WILL ORDER FLEXERIL 5MG TID CLONIDINE 0.1MG DAILY BP NOTED MILDLY ELEVATED INCREASE ORAL FLUIDS CONTINUE TO MONITOR CLINICALLY
[2017-11-18] MEDS: CYCLOBENZAPRINE HCL 5 MG TABLET PO SCH (21:27)
[2017-11-18] MEDS: QUEtiapine FUMARATE 50 MG TABLET PO SCH (21:27)
[2017-11-18] MEDS: MELATONIN 5 MG TABLETS PO PRN (21:28)
[2017-11-18] MEDS: THIAMINE HCL 100 MG TABLET (FP) PO SCH (21:28)
[2017-11-18] MEDS: acetaZOLAMIDE 250 MG TABLET PO SCH (21:28)
[2017-11-18] MEDS ORDERED: PT OWN MED DRAWER 7, Y5N ONE (21:40)
[2017-11-19] MEDS ORDERED: ONDANSETRON *ODT* 4 MG TABLET SL ONE (01:12)
--- NOTE | 2017-11-19 01:14 | PN ---
[facility] Progress Note Note: Patient complained of nausea Vital Signs Temperature 98.5 F 11/18/17 07:08 Pulse Rate 63 11/18/17 21:15 Respiratory Rate 18 11/18/17 07:08 Blood Pressure 137/93 11/18/17 21:15 O2 Sat by Pulse Oximetry (%) Action: zofran 8 mg SL ordered
[2017-11-19] MEDS: CYCLOBENZAPRINE HCL 5 MG TABLET PO SCH ×3 (06:11→21:31)
[2017-11-19] MEDS: AMOXICILLIN 500 MG CAPSULE (FP) PO SCH ×3 (06:11→21:31)
[2017-11-19] MEDS ORDERED: PT OWN MED DRAWER 7, Y5N ONE ×2 (08:31→20:28)
[2017-11-19] MEDS: cloNIDine HCL 0.1 MG TABLET PO SCH (09:46)
[2017-11-19] MEDS: acetaZOLAMIDE 250 MG TABLET PO SCH ×2 (09:47→21:33)
[2017-11-19] MEDS: PARoxetine HCL 20 MG TABLET (FP) PO SCH (09:49)
[2017-11-19] MEDS: PRENATAL VITAMINS W/ FOLIC ACID TABLET (FP) PO SCH (09:49)
[2017-11-19] MEDS: NICOTINE 21 MG/24 HOURS TOPICAL PATCH TD SCH (09:49)
[2017-11-19] MEDS: CHLORHEXIDINE GLUCONATE 0.12% 15ML CUP MM SCH ×2 (09:50→21:33)
[2017-11-19] MEDS: ACETAMINOPHEN 325 MG TABLET (FP) PO PRN ×2 (09:51→21:35)
--- NOTE | 2017-11-19 13:20 | PN ---
[facility] Progress Note Note: Patient continues to experience protracted opioid withdrawal, nauseam vomiting. Linked to [facility] on 11/27/17 at 1pm for after care and suboxone treatment. Vital Signs Temperature 98.2 F 11/19/17 09:12 Pulse Rate 66 11/19/17 09:12 Respiratory Rate 18 11/19/17 09:12 Blood Pressure 137/89 11/19/17 09:12 O2 Sat by Pulse Oximetry (%) Labs reviewed: Throat culture negative for strep Start suboxone 2mg qd for symptom management. increase fluids continue to monitor
[2017-11-19] MEDS: BUPRENORPHINE/NALOXONE 2 MG/0.5 MG FILM PACKET SL SCH (13:43)
[2017-11-19] MEDS: QUEtiapine FUMARATE 50 MG TABLET PO SCH (21:31)
[2017-11-19] MEDS: THIAMINE HCL 100 MG TABLET (FP) PO SCH (21:32)
[2017-11-19] MEDS: MELATONIN 5 MG TABLETS PO PRN (21:34)
[2017-11-20] MEDS: CYCLOBENZAPRINE HCL 5 MG TABLET PO SCH ×3 (06:28→21:19)
[2017-11-20] MEDS: AMOXICILLIN 500 MG CAPSULE (FP) PO SCH ×3 (06:28→21:19)
[2017-11-20] MEDS: NICOTINE 21 MG/24 HOURS TOPICAL PATCH TD SCH (10:33)
[2017-11-20] MEDS: PRENATAL VITAMINS W/ FOLIC ACID TABLET (FP) PO SCH (10:34)
[2017-11-20] MEDS: cloNIDine HCL 0.1 MG TABLET PO SCH (10:34)
[2017-11-20] MEDS: CHLORHEXIDINE GLUCONATE 0.12% 15ML CUP MM SCH ×2 (10:34→21:23)
[2017-11-20] MEDS: BUPRENORPHINE/NALOXONE 2 MG/0.5 MG FILM PACKET SL SCH (10:34)
[2017-11-20] MEDS: PARoxetine HCL 20 MG TABLET (FP) PO SCH (10:34)
[2017-11-20] MEDS: acetaZOLAMIDE 250 MG TABLET PO SCH ×2 (10:35→21:22)
[2017-11-20] MEDS ORDERED: PT OWN MED DRAWER 7, Y5N ONE (11:06)
[2017-11-20] MEDS: diphenhydrAMINE HCL 25 MG CAPSULE (FP) PO PRN ×2 (13:31→21:19)
--- NOTE | 2017-11-20 14:51 | PN ---
[facility] Progress Note Note: Patient states she has side effects of dizziness from Diamox dosage. Requesting to decrease dosage. Will decrease diamox 250mg BID and continue to monitor clinically.
[2017-11-20] MEDS: QUEtiapine FUMARATE 50 MG TABLET PO SCH (21:19)
[2017-11-20] MEDS: ACETAMINOPHEN 325 MG TABLET (FP) PO PRN (21:19)
[2017-11-20] MEDS: THIAMINE HCL 100 MG TABLET (FP) PO SCH (21:20)
[2017-11-20] MEDS: MELATONIN 5 MG TABLETS PO PRN (21:20)
[2017-11-21] MEDS: AMOXICILLIN 500 MG CAPSULE (FP) PO SCH ×3 (06:49→21:20)
[2017-11-21] MEDS: CYCLOBENZAPRINE HCL 5 MG TABLET PO SCH ×3 (06:49→21:20)
[2017-11-21] MEDS: cloNIDine HCL 0.1 MG TABLET PO SCH (09:21)
[2017-11-21] MEDS: acetaZOLAMIDE 250 MG TABLET PO SCH ×2 (09:21→21:24)
[2017-11-21] MEDS: PRENATAL VITAMINS W/ FOLIC ACID TABLET (FP) PO SCH (09:22)
[2017-11-21] MEDS: NICOTINE 21 MG/24 HOURS TOPICAL PATCH TD SCH (09:22)
[2017-11-21] MEDS: PARoxetine HCL 20 MG TABLET (FP) PO SCH (09:22)
[2017-11-21] MEDS: CHLORHEXIDINE GLUCONATE 0.12% 15ML CUP MM SCH ×2 (09:23→21:22)
[2017-11-21] MEDS: BUPRENORPHINE/NALOXONE 2 MG/0.5 MG FILM PACKET SL SCH (09:23)
[2017-11-21] MEDS: THIAMINE HCL 100 MG TABLET (FP) PO SCH (21:20)
[2017-11-21] MEDS: QUEtiapine FUMARATE 50 MG TABLET PO SCH (21:20)
[2017-11-21] MEDS: MELATONIN 5 MG TABLETS PO PRN (21:21)
[2017-11-21] MEDS ORDERED: PT OWN MED DRAWER 7, Y5N ONE (21:23)
[2017-11-22] MEDS ORDERED: PT OWN MED DRAWER 7, Y5N ONE ×2 (02:37→08:12)
[2017-11-22] MEDS: ACETAMINOPHEN 325 MG TABLET (FP) PO PRN ×2 (02:39→21:55)
[2017-11-22] MEDS: BENZOCAINE 20 % GEL 9 GM TUBE MM PRN (02:39)
[2017-11-22] MEDS: CYCLOBENZAPRINE HCL 5 MG TABLET PO SCH ×3 (06:50→21:52)
[2017-11-22] MEDS: PANTOPRAZOLE 20 MG TABLET (FP) PO SCH ×2 (07:45→10:25)
[2017-11-22] MEDS: CHLORHEXIDINE GLUCONATE 0.12% 15ML CUP MM SCH ×2 (10:25→21:52)
[2017-11-22] MEDS: PARoxetine HCL 20 MG TABLET (FP) PO SCH (10:25)
[2017-11-22] MEDS: PRENATAL VITAMINS W/ FOLIC ACID TABLET (FP) PO SCH (10:25)
[2017-11-22] MEDS: acetaZOLAMIDE 250 MG TABLET PO SCH ×2 (10:26→21:52)
[2017-11-22] MEDS: BUPRENORPHINE/NALOXONE 2 MG/0.5 MG FILM PACKET SL SCH (10:26)
[2017-11-22] MEDS: NICOTINE 21 MG/24 HOURS TOPICAL PATCH TD SCH (10:26)
[2017-11-22] MEDS: cloNIDine HCL 0.1 MG TABLET PO SCH (10:27)
[2017-11-22] MEDS: THIAMINE HCL 100 MG TABLET (FP) PO SCH (21:52)
[2017-11-22] MEDS: MELATONIN 5 MG TABLETS PO PRN (21:52)
[2017-11-22] MEDS: QUEtiapine FUMARATE 50 MG TABLET PO SCH (21:52)
[2017-11-23] MEDS: CYCLOBENZAPRINE HCL 5 MG TABLET PO SCH ×3 (06:10→21:43)
[2017-11-23] MEDS ORDERED: PT OWN MED DRAWER 7, Y5N ONE (08:59)
[2017-11-23] MEDS: acetaZOLAMIDE 250 MG TABLET PO SCH ×2 (10:44→21:43)
[2017-11-23] MEDS: PANTOPRAZOLE 20 MG TABLET (FP) PO SCH (10:44)
[2017-11-23] MEDS: PRENATAL VITAMINS W/ FOLIC ACID TABLET (FP) PO SCH (10:44)
[2017-11-23] MEDS: BUPRENORPHINE/NALOXONE 2 MG/0.5 MG FILM PACKET SL SCH (10:44)
[2017-11-23] MEDS: PARoxetine HCL 20 MG TABLET (FP) PO SCH (10:44)
[2017-11-23] MEDS: CHLORHEXIDINE GLUCONATE 0.12% 15ML CUP MM SCH ×2 (10:44→21:44)
[2017-11-23] MEDS: cloNIDine HCL 0.1 MG TABLET PO SCH (10:44)
[2017-11-23] MEDS: NICOTINE 21 MG/24 HOURS TOPICAL PATCH TD SCH (10:44)
[2017-11-23] MEDS: THIAMINE HCL 100 MG TABLET (FP) PO SCH (21:42)
[2017-11-23] MEDS: MELATONIN 5 MG TABLETS PO PRN (21:42)
[2017-11-23] MEDS: diphenhydrAMINE HCL 25 MG CAPSULE (FP) PO PRN (21:43)
[2017-11-23] MEDS: QUEtiapine FUMARATE 50 MG TABLET PO SCH (21:45)
[2017-11-24] MEDS: CYCLOBENZAPRINE HCL 5 MG TABLET PO SCH ×3 (06:21→21:32)
[2017-11-24] MEDS: NICOTINE 21 MG/24 HOURS TOPICAL PATCH TD SCH (10:20)
[2017-11-24] MEDS: cloNIDine HCL 0.1 MG TABLET PO SCH (10:20)
[2017-11-24] MEDS: PRENATAL VITAMINS W/ FOLIC ACID TABLET (FP) PO SCH (10:20)
[2017-11-24] MEDS: PANTOPRAZOLE 20 MG TABLET (FP) PO SCH (10:20)
[2017-11-24] MEDS: PARoxetine HCL 20 MG TABLET (FP) PO SCH (10:20)
[2017-11-24] MEDS: acetaZOLAMIDE 250 MG TABLET PO SCH ×2 (10:21→21:36)
[2017-11-24] MEDS: BUPRENORPHINE/NALOXONE 2 MG/0.5 MG FILM PACKET SL SCH (10:21)
[2017-11-24] MEDS: CHLORHEXIDINE GLUCONATE 0.12% 15ML CUP MM SCH ×2 (10:21→21:36)
--- NOTE | 2017-11-24 14:49 | PN ---
[facility] Progress Note Note: Patient for d/c tomorrow follow up with primary care provider and [facility] on 11/27/17 at 1pm for after care and suboxone treatment.
[2017-11-24] MEDS: QUEtiapine FUMARATE 50 MG TABLET PO SCH (21:32)
[2017-11-24] MEDS: MELATONIN 5 MG TABLETS PO PRN (21:33)
[2017-11-24] MEDS: THIAMINE HCL 100 MG TABLET (FP) PO SCH (21:33)
[2017-11-24] MEDS: ACETAMINOPHEN 325 MG TABLET (FP) PO PRN (21:34)
[2017-11-24] MEDS: diphenhydrAMINE HCL 25 MG CAPSULE (FP) PO PRN (21:34)
[2017-11-25] MEDS: CYCLOBENZAPRINE HCL 5 MG TABLET PO SCH (06:22)
[2017-11-25 06:58] VITALS: TEMP 98.3
[2017-11-25] MEDS ORDERED: PT OWN MED DRAWER 7, Y5N ONE (09:00)
[2017-11-25 09:02] VITALS: BP 120/77; PULSE 76
[2017-11-25] MEDS: NICOTINE 21 MG/24 HOURS TOPICAL PATCH TD SCH (09:05)
[2017-11-25] MEDS: acetaZOLAMIDE 250 MG TABLET PO SCH (09:05)
[2017-11-25] MEDS: cloNIDine HCL 0.1 MG TABLET PO SCH (09:05)
[2017-11-25] MEDS: PANTOPRAZOLE 20 MG TABLET (FP) PO SCH (09:06)
[2017-11-25] MEDS: PARoxetine HCL 20 MG TABLET (FP) PO SCH (09:06)
[2017-11-25] MEDS: BUPRENORPHINE/NALOXONE 2 MG/0.5 MG FILM PACKET SL SCH (09:06)
[2017-11-25] MEDS: PRENATAL VITAMINS W/ FOLIC ACID TABLET (FP) PO SCH (09:06)
[2017-11-25] MEDS: CHLORHEXIDINE GLUCONATE 0.12% 15ML CUP MM SCH (09:09)
--- NOTE | 2017-11-25 17:04 | PN ---
Psychiatric Progress Note Vital Signs: Vital Signs Period Temp Pulse Resp BP Sys/Medeiros Pulse Ox Last 24 Hr 98.3 F 62-76 18-18 120-120/77-81 Date of Session: 11/25/17 Chief Complaint:: Discharge visit Current Side Effect: No Lab tests ordered: No Lab tests reviewed: Yes Provider note:: Patient completed this program today. Total face to face time:: 30 Psychiatric Treatment Plan - Problem List (4) Nicotine dependence Qualifiers:
== END 2017-11-25 09:16 | disposition home or self-care (01) | DRG 772 ==
LOC: YASAS 11:56 → Y3E 14:11
PROVIDERS: ADMIT Psychiatry & Neurology Psychiatry; ATTEND Psychiatry & Neurology Psychiatry
PROC: HZ42ZZZ Group Counseling for Substance Abuse Treatment, Cognitive-Behavioral (ICD-10-PCS; principal; 2017-11-13)
DX: F11.20 Opioid dependence, uncomplicated (principal); F13.20 Sedative, hypnotic or anxiolytic dependence, uncomplicated; F10.20 Alcohol dependence, uncomplicated; F14.20 Cocaine dependence, uncomplicated; F17.210 Nicotine dependence, cigarettes, uncomplicated; F31.81 Bipolar II disorder; K21.9 Gastro-esophageal reflux disease without esophagitis; G93.2 Benign intracranial hypertension; Z88.8 Allergy status to other drugs, medicaments and biological substances
CPT/HCPCS: 87070; J0735; Q0162

== ENCOUNTER 2020-07-03 15:43 | Inpatient (IN) | payer OTHER ==
[2020-07-03 16:58] VITALS: BMI 29.8
[2020-07-03] MEDS ORDERED: ONDANSETRON *ODT* 4 MG TABLET SL PRN (19:15)
[2020-07-03] MEDS ORDERED: IBUPROFEN 400 MG TABLET (FP) PO PRN ×2 (19:15→19:28)
[2020-07-03] MEDS ORDERED: chlordiazePOXIDE HCL 25 MG CAPSULE PO PRN (19:15)
[2020-07-03] MEDS ORDERED: MAGNESIUM HYDROX 2400MG/30ML ORAL SUSPENSION 30 ML CUP PO PRN (19:15)
[2020-07-03] MEDS ORDERED: ACETAMINOPHEN 325 MG TABLET (FP) PO PRN (19:15)
[2020-07-03] MEDS ORDERED: BISMUTH SUBSALICYLATE 524 MG/30 ML UD PO PRN (19:15)
[2020-07-03] MEDS ORDERED: MENTHOL/PHENOL 1 EACH UD MM PRN (19:15)
[2020-07-03] MEDS ORDERED: NICOTINE POLACRILEX 2 MG GUM BUC PRN (19:15)
[2020-07-03] MEDS ORDERED: MAGNESIUM CITRATE 300 ML BOTTLE PO PRN (19:15)
[2020-07-03] MEDS ORDERED: MAG HYDROX/AL HYDROX/SIMETH 30 ML UNIT-DOSE CUP PO PRN (19:15)
[2020-07-03] MEDS: NICOTINE 14 MG/24 HOURS TOPICAL PATCH TD SCH (20:21)
[2020-07-03] MEDS: chlordiazePOXIDE HCL 25 MG CAPSULE PO SCH ×2 (20:21→22:13)
[2020-07-03] MEDS: MELATONIN 5 MG TABLETS PO SCH (22:11)
[2020-07-03] MEDS: METHOCARBAMOL 500 MG TABLET PO PRN (22:13)
[2020-07-03] MEDS: THIAMINE HCL 100 MG TABLET (FP) PO SCH (22:13)
[2020-07-03] MEDS: ACETAMINOPHEN 325 MG TABLET (FP) PO PRN (22:15)
[2020-07-03] MEDS: hydrOXYzine PAMOATE 25 MG CAPSULE (FP) PO SCH (22:31)
[2020-07-04] MEDS: chlordiazePOXIDE HCL 25 MG CAPSULE PO SCH ×4 (05:20→22:11)
[2020-07-04] MEDS: hydrOXYzine PAMOATE 25 MG CAPSULE (FP) PO SCH ×5 (06:17→22:12)
[2020-07-04] MEDS: METHOCARBAMOL 500 MG TABLET PO PRN (10:37)
[2020-07-04] MEDS: ACETAMINOPHEN 325 MG TABLET (FP) PO PRN (10:38)
[2020-07-04] MEDS: NICOTINE 14 MG/24 HOURS TOPICAL PATCH TD SCH (10:39)
[2020-07-04] MEDS: PRENATAL VITAMINS W/ FOLIC ACID TABLET (FP) PO SCH (10:39)
[2020-07-04] MEDS ORDERED: BUPRENORPHINE/NALOXONE 8 MG/2 MG FILM PACKET SL ONE (10:57)
[2020-07-04 12:08] LABS: HEMOGLOBIN 11.4 GM/dL (10.7-15.3); MCH 28.3 pg (25.7-33.7); MCHC 32.5 g/dl (32.0-36.0); MEAN PLT VOLUME 10.3 fl (7.5-11.1); PLATELET COUNT 175 K/MM3 (134-434); RBC 4.02 M/mm3 (3.60-5.2); RDW 13.3 % (11.6-15.6); WHITE BLOOD COUNT 4.2 K/mm3 (4.0-10.0)
[2020-07-04] MEDS: PARoxetine HCL 20 MG TABLET PO SCH (12:12)
[2020-07-04 12:16] LABS: ALBUMIN 3.1 g/dl (3.4-5.0); CALCIUM 8.5 mg/dL (8.5-10.1)
[2020-07-04 12:20] LABS: BILIRUBIN,TOTAL 0.6 mg/dL (0.2-1); CREATININE 0.9 mg/dL (0.55-1.3); TOT PROT 6.4 g/dl (6.4-8.2)
[2020-07-04] MEDS: OFLOXACIN 0.3% OPHTHALMIC SOLUTION 5 ML BOTTLE OD SCH ×2 (14:49→19:23)
[2020-07-04] MEDS: QUEtiapine FUMARATE 50 MG TABLET PO SCH (22:12)
[2020-07-04] MEDS: THIAMINE HCL 100 MG TABLET (FP) PO SCH (22:12)
[2020-07-04] MEDS: MELATONIN 5 MG TABLETS PO SCH (22:12)
[2020-07-05] MEDS: chlordiazePOXIDE HCL 25 MG CAPSULE PO SCH ×4 (05:49→22:04)
[2020-07-05] MEDS: OFLOXACIN 0.3% OPHTHALMIC SOLUTION 5 ML BOTTLE OD SCH ×3 (05:54→20:30)
[2020-07-05] MEDS: hydrOXYzine PAMOATE 25 MG CAPSULE (FP) PO SCH ×5 (05:56→22:03)
[2020-07-05] MEDS: PARoxetine HCL 20 MG TABLET PO SCH (10:13)
[2020-07-05] MEDS: BUPRENORPHINE/NALOXONE 8 MG/2 MG FILM PACKET SL SCH (10:14)
[2020-07-05] MEDS: NICOTINE 14 MG/24 HOURS TOPICAL PATCH TD SCH (10:15)
[2020-07-05] MEDS: PRENATAL VITAMINS W/ FOLIC ACID TABLET (FP) PO SCH (10:15)
[2020-07-05] MEDS: ACETAMINOPHEN 325 MG TABLET (FP) PO PRN (10:18)
[2020-07-05] MEDS: METHOCARBAMOL 500 MG TABLET PO PRN (10:18)
[2020-07-05] MEDS: MELATONIN 5 MG TABLETS PO SCH (22:03)
[2020-07-05] MEDS: QUEtiapine FUMARATE 50 MG TABLET PO SCH (22:03)
[2020-07-05] MEDS: THIAMINE HCL 100 MG TABLET (FP) PO SCH (22:03)
[2020-07-06] MEDS ORDERED: chlordiazePOXIDE HCL 10 MG CAPSULE PO PRN
[2020-07-06] MEDS: OFLOXACIN 0.3% OPHTHALMIC SOLUTION 5 ML BOTTLE OD SCH ×3 (06:03→21:33)
[2020-07-06] MEDS: hydrOXYzine PAMOATE 25 MG CAPSULE (FP) PO SCH ×5 (06:04→22:25)
[2020-07-06] MEDS: chlordiazePOXIDE HCL 10 MG CAPSULE PO SCH ×4 (06:04→22:25)
[2020-07-06] MEDS: BUPRENORPHINE/NALOXONE 8 MG/2 MG FILM PACKET SL SCH (10:31)
[2020-07-06] MEDS: PARoxetine HCL 20 MG TABLET PO SCH (10:33)
[2020-07-06] MEDS: PRENATAL VITAMINS W/ FOLIC ACID TABLET (FP) PO SCH (10:34)
[2020-07-06] MEDS: NICOTINE 14 MG/24 HOURS TOPICAL PATCH TD SCH (10:35)
[2020-07-06] MEDS ORDERED: FLU VACCINE (FLULAVAL) PF 60 MCG/0.5 ML SYRINGE 2020-2021 IM ONE (12:00)
[2020-07-06] MEDS: METHOCARBAMOL 500 MG TABLET PO PRN (18:02)
[2020-07-06] MEDS: QUEtiapine FUMARATE 50 MG TABLET PO SCH (22:24)
[2020-07-06] MEDS: MELATONIN 5 MG TABLETS PO SCH (22:25)
[2020-07-06] MEDS: THIAMINE HCL 100 MG TABLET (FP) PO SCH (22:25)
[2020-07-07] MEDS: hydrOXYzine PAMOATE 25 MG CAPSULE (FP) PO SCH ×5 (06:32→22:22)
[2020-07-07] MEDS: chlordiazePOXIDE HCL 10 MG CAPSULE PO SCH ×2 (06:33→18:31)
[2020-07-07] MEDS: OFLOXACIN 0.3% OPHTHALMIC SOLUTION 5 ML BOTTLE OD SCH ×3 (06:34→21:19)
[2020-07-07] MEDS: BUPRENORPHINE/NALOXONE 8 MG/2 MG FILM PACKET SL SCH (10:16)
[2020-07-07] MEDS: PARoxetine HCL 20 MG TABLET PO SCH (10:17)
[2020-07-07] MEDS: METHOCARBAMOL 500 MG TABLET PO PRN ×2 (10:17→22:22)
[2020-07-07] MEDS: NICOTINE 14 MG/24 HOURS TOPICAL PATCH TD SCH (10:17)
[2020-07-07] MEDS: PRENATAL VITAMINS W/ FOLIC ACID TABLET (FP) PO SCH (10:17)
[2020-07-07 14:09] LABS: HIV INTERPRETATION NEGATIVE (NEGATIVE)
[2020-07-07] MEDS: QUEtiapine FUMARATE 50 MG TABLET PO SCH (22:22)
[2020-07-07] MEDS: MELATONIN 5 MG TABLETS PO SCH (22:22)
[2020-07-07] MEDS: THIAMINE HCL 100 MG TABLET (FP) PO SCH (22:23)
[2020-07-08] MEDS ORDERED: chlordiazePOXIDE HCL 10 MG CAPSULE PO ONE (05:00)
[2020-07-08] MEDS: hydrOXYzine PAMOATE 25 MG CAPSULE (FP) PO SCH (06:19)
[2020-07-08] MEDS: OFLOXACIN 0.3% OPHTHALMIC SOLUTION 5 ML BOTTLE OD SCH (06:19)
[2020-07-08 07:03] VITALS: BP 125/68; PULSE 77; TEMP 96.8
[2020-07-08] MEDS: PARoxetine HCL 20 MG TABLET PO SCH (09:27)
[2020-07-08] MEDS: BUPRENORPHINE/NALOXONE 8 MG/2 MG FILM PACKET SL SCH (09:28)
[2020-07-08] MEDS: NICOTINE 14 MG/24 HOURS TOPICAL PATCH TD SCH (09:29)
[2020-07-08] MEDS: PRENATAL VITAMINS W/ FOLIC ACID TABLET (FP) PO SCH (09:29)
== END 2020-07-08 09:32 | disposition home or self-care (01) | DRG 773 ==
LOC: YASAS 15:43 → Y6N 18:57
PROVIDERS: ADMIT Allergy & Immunology; ATTEND Allergy & Immunology
PROC: HZ2ZZZZ Detoxification Services for Substance Abuse Treatment (ICD-10-PCS; principal; 2020-07-03)
DX: F10.230 Alcohol dependence with withdrawal, uncomplicated (principal); F14.20 Cocaine dependence, uncomplicated; F11.20 Opioid dependence, uncomplicated; F17.210 Nicotine dependence, cigarettes, uncomplicated; F31.81 Bipolar II disorder; F19.282 Other psychoactive substance dependence with psychoactive substance-induced sleep disorder; F19.24 Other psychoactive substance dependence with psychoactive substance-induced mood disorder; F41.9 Anxiety disorder, unspecified; F43.10 Post-traumatic stress disorder, unspecified; K21.9 Gastro-esophageal reflux disease without esophagitis; H01.8 Other specified inflammations of eyelid; G93.2 Benign intracranial hypertension; Z62.810 Personal history of physical and sexual abuse in childhood; Z51.81 Encounter for therapeutic drug level monitoring; Z79.899 Other long term (current) drug therapy; Z88.8 Allergy status to other drugs, medicaments and biological substances; Z88.5 Allergy status to narcotic agent; Z98.890 Other specified postprocedural states; Z91.410 Personal history of adult physical and sexual abuse
CPT/HCPCS: 36415; 80053; 81025; 85027; 86780; 87389; C9803; G0008; Q2036; U0003

== ENCOUNTER 2022-09-30 18:58 | Emergency (ER) | payer OTHER ==
[2022-09-30 19:10] VITALS: BP 146/97; PULSE 82; RESP 18; TEMP 99.1; BMI 28.4
[2022-09-30 22:20] LABS: BASO % 0.3 % (0-2.0); EOS % 0.5 % (0-4.5); HEMATOCRIT 36.7 % (32.4-45.2); HEMOGLOBIN 12.1 GM/dL (10.7-15.3); LYMPH % 23.4 % (8-40); MCH 27.7 pg (25.7-33.7); MEAN CELL VOLUME 84.1 fl (80-96); MEAN PLT VOLUME 9.6 fl (7.5-11.1); MONO % 6.9 % (3.8-10.2); NEUT % 68.9 % (42.8-82.8); PLATELET COUNT 190 10^3/uL (134-434); RBC 4.37 M/mm3 (3.60-5.2); RDW 13.1 % (11.6-15.6); WHITE BLOOD COUNT 5.7 K/mm3 (4.0-10.0)
[2022-09-30 22:50] LABS: CALCIUM 8.8 mg/dL (8.5-10.1)
[2022-09-30 22:51] LABS: ALBUMIN 3.5 g/dl (3.4-5.0); BLOOD UREA NITROGEN 7.2 mg/dL (7-18)
[2022-09-30 22:54] LABS: CREATININE 0.7 mg/dL (0.55-1.3)
[2022-09-30 22:55] LABS: TOT PROT 7.1 g/dl (6.4-8.2)
[2022-09-30 22:56] LABS: BILIRUBIN,TOTAL 0.4 mg/dL (0.2-1)
== END 2022-09-30 23:12 | disposition home or self-care (01) ==
LOC: JER 18:58
DX: R07.2 Precordial pain (principal); M54.6 Pain in thoracic spine; M54.2 Cervicalgia
CPT/HCPCS: 36415; 71046-TC-FY; 80053; 82962; 84484; 85025; 93005; 93010; 99285-25

== ENCOUNTER 2023-06-13 20:26 | Inpatient (IN) | payer OTHER ==
[2023-06-13 20:45] VITALS: RESP 18; BMI 22.1
[2023-06-13] MEDS ORDERED: SODIUM CHLORIDE 0.9% 500 ML INFUS.BAG IV ONE (21:14)
[2023-06-13] MEDS ORDERED: ONDANSETRON 4 MG/2 ML VIAL IVPUSH ONE (21:14)
[2023-06-13] MEDS ORDERED: ACETAMINOPHEN 1000 MG/100 ML BAG IVPB ONE (21:16)
[2023-06-13] MEDS ORDERED: FAMOTIDINE 20 MG/50 ML IVPB 20 MG/50 ML MG IVPB ONE ×2 (21:17→21:42)
[2023-06-13] MEDS ORDERED: ONDANSETRON 4 MG/2 ML VIAL ONE (21:42)
[2023-06-13] MEDS ORDERED: ACETAMINOPHEN INJECTION 100 ML IVPB ONE (21:42)
[2023-06-13 21:52] LABS: BASO % 0.3 % (0-2.0); EOS % 0.7 % (0-4.5); HEMATOCRIT 43.4 % (32.4-45.2); LYMPH % 23.2 % (8-40); MCHC 32.2 g/dl (32.0-36.0); MEAN PLT VOLUME 10.1 fl (7.5-11.1); MONO % 6.5 % (3.8-10.2); NEUT % 69.3 % (42.8-82.8); PLATELET COUNT 191 10^3/uL (134-434); RBC 4.99 M/mm3 (3.60-5.2); RDW 13.1 % (11.6-15.6); WHITE BLOOD COUNT 6.7 K/mm3 (4.0-10.0)
[2023-06-13 22:00] LABS: INR 1.04 (0.83-1.09); PROTHROMBIN TIME (PATIENT) 12.1 SEC (9.7-13.0)
[2023-06-13 22:02] LABS: ACTIVATED PTT 31.4 SECONDS (25.2-36.5)
[2023-06-13 22:05] LABS: POTASSIUM 4.1 mmol/L (3.5-5.1)
[2023-06-13 22:09] LABS: ALBUMIN 3.9 g/dl (3.4-5.0); BLOOD UREA NITROGEN 14.8 mg/dL (7-18); CALCIUM 9.3 mg/dL (8.5-10.1); MAGNESIUM 2.2 mg/dL (1.8-2.4)
[2023-06-13 22:12] LABS: CREATININE 0.8 mg/dL (0.55-1.3)
[2023-06-13 22:13] LABS: TOT PROT 7.8 g/dl (6.4-8.2)
[2023-06-13 22:14] LABS: BILIRUBIN,TOTAL 0.4 mg/dL (0.2-1)
[2023-06-13] MEDS ORDERED: morphine SULFATE 4 MG/ML VIAL IVPUSH ONE (23:29)
[2023-06-13] MEDS ORDERED: morphine SULFATE 4 MG/ML VIAL ONE (23:35)
[2023-06-14 00:06] LABS: EPI CELLS >36 /uL (0-25.1); HYALINE CASTS 7 /uL (0-3.1); URINE APPEARANCE CLEAR; URINE BACTERIA 5231 /uL (0-1359); URINE BILIRUBIN NEGATIVE (NEGATIVE); URINE COLOR YELLOW; URINE GLUCOSE (UA) NEGATIVE (NEGATIVE); URINE KETONE NEGATIVE (NEGATIVE); URINE LEUK ESTERASE NEGATIVE (NEGATIVE); URINE NITRITE POSITIVE (NEGATIVE); URINE PROTEIN NEGATIVE (NEGATIVE); URINE RBC 11 /uL (0-23.9); URINE UROBILINOGEN 0.2 mg/dL (0.2-1.0)
[2023-06-14 00:45] LABS: COCAINE, UR NEGATIVE (NEGATIVE); METHADONE, UR NEGATIVE (NEGATIVE); OPIATES, URI NEGATIVE (NEGATIVE); URINE AMPHETAMINES NEGATIVE (NEGATIVE); URINE BARBITURATES NEGATIVE (NEGATIVE)
[2023-06-14 00:46] LABS: PHENCYCLIDINE,URINE NEGATIVE (NEGATIVE); URINE BENZODIAZEPINES NEGATIVE (NEGATIVE)
[2023-06-14 00:55] LABS: URINE WBC 83.9 /uL (0-25.8)
[2023-06-14] MEDS ORDERED: BUPRENORPHINE/NALOXONE 8 MG/2 MG FILM PACKET SL ONE (01:52)
[2023-06-14] MEDS ORDERED: BUPRENORPHINE/NALOXONE 8 MG/2 MG FILM PACKET ONE (02:12)
[2023-06-14] MEDS ORDERED: morphine SULFATE 4 MG/ML VIAL IVPUSH ONE (04:03)
[2023-06-14] MEDS ORDERED: DEXTROSE 5%-0.45% SALINE 1,000 ML IV SCH (06:30)
[2023-06-14] MEDS ORDERED: INSULIN (LEVEMIR) 100 UNITS/ML UNITS SQ ONE (08:11)
[2023-06-14 09:05] LABS: BASO % 0.1 % (0-2.0); HEMATOCRIT 36.3 % (32.4-45.2); HEMOGLOBIN 11.9 GM/dL (10.7-15.3); LYMPH % 27.9 % (8-40); MCH 28.1 pg (25.7-33.7); MCHC 32.7 g/dl (32.0-36.0); MEAN CELL VOLUME 86.1 fl (80-96); MEAN PLT VOLUME 10.3 fl (7.5-11.1); MONO % 6.6 % (3.8-10.2); NEUT % 64.4 % (42.8-82.8); PLATELET COUNT 169 10^3/uL (134-434); RBC 4.21 M/mm3 (3.60-5.2); RDW 12.7 % (11.6-15.6); WHITE BLOOD COUNT 7.2 K/mm3 (4.0-10.0)
[2023-06-14 09:30] LABS: POTASSIUM 4.2 mmol/L (3.5-5.1)
[2023-06-14 09:33] LABS: CALCIUM 8.2 mg/dL (8.5-10.1)
[2023-06-14 09:34] LABS: BLOOD UREA NITROGEN 12.2 mg/dL (7-18)
[2023-06-14 09:37] LABS: CREATININE 0.8 mg/dL (0.55-1.3)
[2023-06-14] MEDS ORDERED: PANTOPRAZOLE SODIUM 40 MG VIAL IVPUSH SCH (10:00)
[2023-06-14 14:32] VITALS: BP 105/62; PULSE 61; TEMP 98.1
[2023-06-14] MEDS ORDERED: BISACODYL 10 MG SUPP.RECT PR ONE (15:26)
[2023-06-14] MEDS ORDERED: LACTULOSE 20 GM/30 ML UDC (FOR ORAL USE ONLY) PO ONE (15:26)
[2023-06-14] MEDS ORDERED: MAG HYDROX/AL HYDROX/SIMETH 30 ML UNIT-DOSE CUP PO ONE (15:29)
== END 2023-06-14 06:00 | disposition home or self-care (01) | DRG 247 ==
LOC: JER 20:26 → JERBED 23:31 → J6S 06-14 02:57
PROVIDERS: ADMIT Internal Medicine; ATTEND Internal Medicine
DX: K56.609 Unspecified intestinal obstruction, unspecified as to partial versus complete obstruction (principal); F31.81 Bipolar II disorder; E03.9 Hypothyroidism, unspecified; K21.9 Gastro-esophageal reflux disease without esophagitis; K56.41 Fecal impaction; F17.210 Nicotine dependence, cigarettes, uncomplicated; F43.10 Post-traumatic stress disorder, unspecified; F41.8 Other specified anxiety disorders; G93.2 Benign intracranial hypertension
CPT/HCPCS: 0241U-QW; 36415; 74019-TC-FY; 74177-TC; 80048; 80053; 80307; 81003; 83605; 83690; 83735; 84439; 84443; 84484; 84703; 85025; 85610; 85730; 86850; 86900; 86901; 87086; 87186; 93005; 93010; 99285-25; Q9967

== ENCOUNTER 2024-01-14 14:12 | Inpatient (IN) | payer OTHER ==
[2024-01-14 15:25] VITALS: BMI 25.1
[2024-01-14] MEDS ORDERED: BENZONATATE 200 MG CAPSULE PO PRN (16:50)
[2024-01-14] MEDS ORDERED: P-EPHED 60MG/TRIPROLIDI 2.5MG TABLET PO PRN (16:50)
[2024-01-14] MEDS ORDERED: guaiFENesin 600 MG TABLET.ER (FP) PO PRN (16:50)
[2024-01-14] MEDS ORDERED: DICYCLOMINE HCL 10 MG CAPSULE PO PRN (16:50)
[2024-01-14] MEDS ORDERED: NICOTINE POLACRILEX 2 MG GUM BUC PRN (16:50)
[2024-01-14] MEDS ORDERED: NALOXONE (NARCAN) HCL 4 MG/0.1 ML SPRAY NS PRN (16:50)
[2024-01-14] MEDS ORDERED: BENZOCAINE/MENTHOL (CHLORASEPTIC ) LOZENGE MM PRN (16:50)
[2024-01-14] MEDS ORDERED: NICOTINE POLACRILEX 2 MG LOZENGE BC PRN (16:50)
[2024-01-14] MEDS ORDERED: LOPERAMIDE HCL 2 MG CAPSULE PO PRN (16:50)
[2024-01-14] MEDS ORDERED: NALOXONE HCL 0.4 MG/ML VIAL IM PRN (16:50)
[2024-01-14] MEDS ORDERED: MAGNESIUM HYDROX 2400MG/30ML ORAL SUSPENSION 30 ML CUP PO PRN (16:50)
[2024-01-14] MEDS ORDERED: chlordiazePOXIDE HCL 25 MG CAPSULE ONE (17:59)
[2024-01-14] MEDS: chlordiazePOXIDE HCL 25 MG CAPSULE PO SCH (18:08)
[2024-01-14] MEDS ORDERED: methaDONE HCL 10 MG TABLET (FOR DETOX USE ONLY) ONE (21:09)
[2024-01-14] MEDS: methaDONE HCL 10 MG TABLET (FOR DETOX USE ONLY) PO ONE (21:12)
[2024-01-15] MEDS: MELATONIN 5 MG TABLETS PO SCH (00:22)
[2024-01-15] MEDS: THIAMINE 100 MG TABLET PO SCH (00:22)
[2024-01-15] MEDS ORDERED: chlordiazePOXIDE HCL 25 MG CAPSULE ONE ×2 (05:02→10:04)
[2024-01-15] MEDS ORDERED: methaDONE HCL 10 MG TABLET ONE (09:17)
[2024-01-15] MEDS ORDERED: PRENATAL VITAMINS W/ FOLIC ACID TABLET (FP) PO ONE (09:17)
[2024-01-15] MEDS: PRENATAL VITAMINS W/ FOLIC ACID TABLET (FP) PO SCH (09:28)
[2024-01-15] MEDS ORDERED: ACETAMINOPHEN 325 MG TABLET (FP) ONE (09:45)
[2024-01-15] MEDS: ACETAMINOPHEN 325 MG TABLET (FP) PO PRN (09:55)
[2024-01-15] MEDS: FAMOTIDINE 20 MG TABLET PO SCH (09:59)
[2024-01-15] MEDS ORDERED: FAMOTIDINE 40 MG TABLET PO SCH (10:00)
[2024-01-15] MEDS: LEVOTHYROXINE NA 88 MCG TABLET (FP) PO SCH ×2 (10:56→13:13)
[2024-01-15] MEDS: chlordiazePOXIDE HCL 25 MG CAPSULE PO PRN (12:58)
[2024-01-15] MEDS: METHOCARBAMOL 500 MG TABLET PO PRN (12:58)
[2024-01-15 14:24] LABS: HEMATOCRIT 38.1 % (32.4-45.2); HEMOGLOBIN 12.6 GM/dL (10.7-15.3); MCH 28.6 pg (25.7-33.7); MCHC 33.1 g/dl (32.0-36.0); MEAN CELL VOLUME 86.4 fl (80-96); MEAN PLT VOLUME 9.7 fl (7.5-11.1); PLATELET COUNT 191 10^3/uL (134-434); RBC 4.41 M/mm3 (3.60-5.2); RDW 13.8 % (11.6-15.6); WHITE BLOOD COUNT 4.8 K/mm3 (4.0-10.0)
[2024-01-15 14:31] LABS: CHLORIDE 106 mmol/L (98-107); POTASSIUM 4.3 mmol/L (3.5-5.1); SODIUM 141 mmol/L (136-145)
[2024-01-15 14:52] LABS: CALCIUM 8.9 mg/dL (8.5-10.1)
[2024-01-15 14:53] LABS: ALBUMIN 3.2 g/dl (3.4-5.0); ANION GAP 5 mmol/L (4-13); CO2 30 mmol/L (21-32); GLUCOSE,RANDOM 56 mg/dL (74-106)
[2024-01-15 14:54] LABS: BLOOD UREA NITROGEN 11.2 mg/dL (7-18)
[2024-01-15 14:56] LABS: SGOT/AST 17 U/L (15-37); SGPT/ALT 27 U/L (13-61)
[2024-01-15 14:58] LABS: TOT PROT 6.4 g/dl (6.4-8.2)
[2024-01-15 14:59] LABS: ALK PHOS 79 U/L (45-117); BILIRUBIN,TOTAL 0.4 mg/dL (0.2-1)
[2024-01-16] MEDS: chlordiazePOXIDE HCL 25 MG CAPSULE PO SCH (05:32)
[2024-01-16] MEDS ORDERED: methaDONE HCL 10 MG TABLET (FOR DETOX USE ONLY) PO ONE (10:00)
[2024-01-16] MEDS: methaDONE HCL 10 MG TABLET (FOR DETOX USE ONLY) PO ONE (10:16)
[2024-01-16] MEDS: methaDONE HCL 10 MG TABLET PO ONE (11:53)
[2024-01-16] MEDS: cloNIDine HCL 0.1 MG TABLET PO SCH (13:49)
[2024-01-17] MEDS: chlordiazePOXIDE HCL 10 MG CAPSULE PO SCH (05:35)
[2024-01-17] MEDS ORDERED: methaDONE HCL 40 MG DISPERSABLE TABLET PO ONE (10:00)
[2024-01-17] MEDS: chlordiazePOXIDE HCL 10 MG CAPSULE PO PRN (13:58)
[2024-01-18] MEDS: chlordiazePOXIDE HCL 10 MG CAPSULE PO SCH (05:20)
[2024-01-18] MEDS: cloNIDine HCL 0.1 MG TABLET PO PRN (06:01)
[2024-01-18 09:04] LABS: POTASSIUM 4.2 mmol/L (3.5-5.1)
[2024-01-18 09:05] LABS: BASO % 0.8 % (0-2.0); EOS % 2.3 % (0-4.5); HEMATOCRIT 35.7 % (32.4-45.2); HEMOGLOBIN 11.8 GM/dL (10.7-15.3); LYMPH % 34.1 % (8-40); MCH 28.9 pg (25.7-33.7); MCHC 33.1 g/dl (32.0-36.0); MEAN CELL VOLUME 87.2 fl (80-96); MONO % 9.1 % (3.8-10.2); NEUT % 53.7 % (42.8-82.8); PLATELET COUNT 206 10^3/uL (134-434); RBC 4.09 M/mm3 (3.60-5.2); WHITE BLOOD COUNT 5.5 K/mm3 (4.0-10.0)
[2024-01-18 09:08] LABS: BLOOD UREA NITROGEN 21.7 mg/dL (7-18); CALCIUM 8.2 mg/dL (8.5-10.1)
[2024-01-18] MEDS ORDERED: methaDONE HCL 40 MG DISPERSABLE TABLET PO ONE (10:00)
[2024-01-18] MEDS: POLYETHYLENE GLYCOL (HEALTHYLAX) 3350 17 GM PACKET PO PRN (13:57)
[2024-01-18] MEDS: ONDANSETRON *ODT* 4 MG TABLET SL PRN (13:58)
[2024-01-18] MEDS: MAG HYDROX/AL HYDROX/SIMETH 30 ML UNIT-DOSE CUP PO PRN (13:58)
[2024-01-18] MEDS: QUEtiapine FUMARATE 100 MG TABLET (FP) PO SCH (21:22)
[2024-01-19] MEDS: chlordiazePOXIDE HCL 10 MG CAPSULE PO ONE (05:44)
[2024-01-19 08:45] VITALS: BP 113/67; PULSE 82; RESP 17; TEMP 97.9
[2024-01-19] MEDS: methaDONE HCL 40 MG DISPERSABLE TABLET PO ONE (09:25)
[2024-01-20] MEDS ORDERED: methaDONE HCL 40 MG DISPERSABLE TABLET PO ONE (10:00)
[2024-01-21] MEDS ORDERED: methaDONE HCL 40 MG DISPERSABLE TABLET PO ONE (10:00)
== END 2024-01-19 10:35 | disposition home or self-care (01) | DRG 773 ==
LOC: YASAS 14:12 → Y3N 01-15 12:18
PROVIDERS: ADMIT Allergy & Immunology; ATTEND Surgery
PROC: HZ2ZZZZ Detoxification Services for Substance Abuse Treatment (ICD-10-PCS; principal; 2024-01-15)
DX: F11.23 Opioid dependence with withdrawal (principal); F10.230 Alcohol dependence with withdrawal, uncomplicated; F13.20 Sedative, hypnotic or anxiolytic dependence, uncomplicated; F14.20 Cocaine dependence, uncomplicated; F17.210 Nicotine dependence, cigarettes, uncomplicated; F31.81 Bipolar II disorder; F19.24 Other psychoactive substance dependence with psychoactive substance-induced mood disorder; E03.9 Hypothyroidism, unspecified; K21.9 Gastro-esophageal reflux disease without esophagitis; Z63.4 Disappearance and death of family member; Z62.810 Personal history of physical and sexual abuse in childhood; Z63.8 Other specified problems related to primary support group; Z88.6 Allergy status to analgesic agent; Z88.8 Allergy status to other drugs, medicaments and biological substances
CPT/HCPCS: 36415; 80048; 80053; 80305; 80307; 85025; 85027; 86780; 93005; 93010; Q0162